=== PATIENT | female | born 1935 | race Caucasian/White ===

== ENCOUNTER 2017-08-22 13:21 | Inpatient (IN) ==
[2017-08-22] MEDS ORDERED: ASPIRIN PO STA (13:27)
[2017-08-22] MEDS ORDERED: LOPRESSOR IV ONE (13:37)
--- NOTE | 2017-08-22 14:10 | EKG Report ---
Test Performed on : 08/22/2017 1:34:07 PM Test Reason : CHEST PAIN Blood Pressure : / mmHG Vent. Rate : 148 BPM Atrial Rate : 131 BPM P-R Int : 000 ms QRS Dur : 082 ms QT Int : 310 ms P-R-T Axes : 000 009 115 degrees QTc Int : 486 ms Atrial fibrillation. with rapid ventricular response. ST \T\ T wave abnormality, consider lateral ischemia Abnormal ECG No previous ECGs available Unconfirmed Result
[2017-08-22 14:32] LABS: MANUAL DIFF NEEDED? NO
[2017-08-22 14:39] LABS: BASO% 0.2 % (0.0-0.8); EOS# 0.08 X1000 (0.0-0.7); EOS% 1.4 % (0.0-10.0); HEMATOCRIT 38.4 % (37.0-47.0); HEMOGLOBIN 12.8 g/dL (12.0-16.0); IMM GRAN# 0.02 X1000 (0.0-0.04); IMM GRAN% 0.3 % (0.0-0.5); LYMPH# 1.45 X1000 (1.2-3.4); LYMPH% 24.6 % (20.5-51.1); MCHC 33.3 g/dL (33-37); MCV 86.9 FL (81-99); MONO# 0.54 X1000 (0.11-0.59); MONO% 9.2 % (1.7-9.3); MPV 10.2 FL (7.4-10.4); NEUT% 64.3 % (42.2-75.2); PLT 229 X1000 (130-400); RBC 4.42 XMIL (4.2-5.4)
[2017-08-22] MEDS ORDERED: NS 500 ML IV ONE (14:48)
[2017-08-22] MEDS ORDERED: CARDIZEM 100 MG/NS 100 MG/100 ML IVPB IV SCH (14:53)
--- NOTE | 2017-08-22 14:58 | PROVIDER DOCUMENTATION ---
This chart was entered by Jaswant Mathews Scribe, acting as scribe for Steve Moreira MD. HPI-Chest Pain - General Chief Complaint: Chest Pain Stated Complaint: Chest pain Time Seen by Provider: 08/22/17 13:29 Source: patient Allergies/Adverse Reactions: Patient Allergies Allergy/AdvReac Type Severity Reaction Status Date / Time ampicillin Allergy Mild ITCHING Verified 08/22/17 13:26 erythromycin base Allergy Mild ITCHING Verified 08/22/17 13:26 [Erythromycin Base] tetanus immune globulin Allergy Mild ITCHING Verified 08/22/17 13:26 Penicillins Allergy Unknown Unknown Verified 08/22/17 13:26 Home Medications: Home Medication List Medication Instructions Recorded Confirmed Last Taken Type Aspirin 81 mg PO DAILY 01/09/14 01/09/14 01/09/14 08:00 History Losartan/Hctz [Hyzaar 100/12.5 mg 1 each PO DAILY 01/09/14 01/09/14 01/09/14 08: 00 History Tab] Metformin HCl [Fortamet] 500 mg PO DAILY 01/09/14 01/09/14 01/09/14 08:00 History Metoprolol [Lopressor] 50 mg PO DAILY 01/09/14 01/09/14 01/09/14 08:00 History Simvastatin 80 mg PO DAILY 01/09/14 01/09/14 01/09/14 08:00 History - History of Present Illness-CP Nature of Presenting Problem: patient is a 82 y/o F that presents with substernal chest pain began a hour ago. no relief with nitro en route. patient reports missing her dose of Metoprolol this am. no sob, n/v, or diaphoresis Location: reports: substernal Quality of Pain: reports: tightness Severity in ED: moderate Onset/Duration: abrupt, 1 hour ago Timing: still present, constant Context/Activities at Onset: reports: other (missed dose of metoprolol) Modifying Factors: improves with: nothing Associated Symptoms: denies: abdominal pain, back pain, dizziness, fever/chills , nausea, shortness of breath, vomiting Nitro Today/Relief: no nitro taken today Aspirin Treatment Today: 325 mg x 1, provided by ED Prior Chest Pain/Cardiac Workup: reports: cardiac cath (stents) Similar Symptoms Previously?: No Recently Seen Here or By Another Healthcare Provider: No Review of Systems - Adult - REVIEW OF SYSTEMS - ADULT Constitutional: denies: chills, fever Eyes: reports: no symptoms reported Ears, Nose, Mouth & Throat: reports: no symptoms reported Cardiovascular: reports: chest pain. denies: orthopnea, palpitations, syncope Respiratory: denies: cough, shortness of breath, wheezing Gastrointestinal: denies: abdominal pain, nausea, vomiting Genitourinary: reports: no symptoms reported Musculoskeletal: reports: no symptoms reported Integumentary: reports: no symptoms reported Neurological: reports: no symptoms reported Psychiatric: reports: no symptoms reported Endocrine: reports: no symptoms reported Hematologic/Lymphatic: reports: no symptoms reported Allergic/Immunologic: reports: no symptoms reported All Other Systems: Reviewed and Negative Past History - Adult - PAST MEDICAL HISTORY-ADULT Review of Records: reports: Old Records Reviewed, Nursing Assessment Review, Medications Reviewed Cardiovascular: reports: CAD, HTN, hyperlipidemia, other (MVP) - PRIOR SURGERIES/PROCEDURES Surgical/Procedure History: reports: cardiac stent, other (kidney) - IMMUNIZATION STATUS Childhood Immunizations: See Nurse Assessment Flu Vaccine: See Nurse Assessment - FAMILY HISTORY Family History: reviewed, not pertinent - SOCIAL HISTORY Smoking: non-smoker Living Situation: family Physical Exam-General - PHYSICAL EXAM-ADULT Initial Vital Signs Reviewed: Yes - CONSTITUTIONAL General Appearance: alert, mild distress - EYES Eyes: PERRL/EOMI, pink conjunctivae - HEAD, EARS, NOSE, MOUTH & THROAT HENMT: normocephalic/atraumatic, moist mucous membranes, normal ENT inspection - NECK Neck: non-tender, full range of motion, normal inspection - RESPIRATORY Respiratory: lungs clear, normal breath sounds, no respiratory distress, no accessory muscle use - CARDIOVASCULAR Cardiovascular: no JVD, irregularly irregular - GASTROINTESTINAL (ABDOMEN) Abdominal Exam: normal bowel sounds, non tender, soft - MUSCULOSKELETAL Back Exam: no CVA tenderness, no vertebral tenderness Extremity: normal range of motion, normal inspection, no pedal edema, normal capillary refill - SKIN Integumentary: normal color, warm/dry - NEUROLOGIC Neurologic: lock tender II-XII nml as tested, no motor/sensory deficits - PSYCHIATRIC Psych/Mental Status: normal mood/affect, normal thought content, normal thought process, oriented x 3 Progress - PLAN OF CARE/RESULTS Progress/Plan/Lab Results: Vital Signs - 8 hr 08/22/17 13:22 08/22/17 13:47 08/22/17 13:52 Temperature 97.9 F Pulse Rate 131 H 147 H 124 H Respiratory Rate 16 20 20 Blood Pressure 133/68 150/78 133/66 O2 Sat by Pulse Oximetry 95 100 100 08/22/17 14:11 08/22/17 14:43 08/22/17 14:52 Temperature Pulse Rate 116 H 121 H 133 H Respiratory Rate 20 13 16 Blood Pressure 114/85 96/76 103/60 O2 Sat by Pulse Oximetry 100 99 98 Laboratory Results - last 24 hr 08/22/17 13:50 WBC 5.90 RBC 4.42 Hgb 12.8 Hct 38.4 MCV 86.9 MCH 29.0 MCHC 33.3 RDW Std Deviation 13.3 Plt Count 229 MPV 10.2 Immature Gran % (Auto) 0.3 Neut % (Auto) 64.3 Lymph % (Auto) 24.6 [place] % (Auto) 9.2 Eos % (Auto) 1.4 Baso % (Auto) 0.2 Immature Gran # (Auto) 0.02 Neut # (Auto) 3.80 Lymph # (Auto) 1.45 [place] # (Auto) 0.54 Eos # (Auto) 0.08 Baso # (Auto) 0.01 Orders Category Date Time Status Cardiac Monitoring DIRECTED Care 08/22/17 13:27 Active Saline Loc NOW Care 08/22/17 13:27 Active CHEST-2 VIEWS [RAD] Stat Exams 08/22/17 13:27 Taken CBC WITH ELECTRONIC DIFF [HEME] Stat Lab 08/22/17 13:50 Completed CK PROFILE [SP CHEM] Stat Lab 08/22/17 13:50 Received COMPREHENSIVE METABOLIC PANEL [CHEM] Stat Lab 08/22/17 13:50 Received MAGNESIUM [CHEM] Stat Lab 08/22/17 13:50 Received PRO B-NATRIURETIC PEPTIDE Stat Lab 08/22/17 13:50 Received PR[address]IME WITH INR PL [COAG] Stat Lab 08/22/17 13:[address] [COAG] Stat Lab 08/22/17 13:50 Received TROPONIN T Stat Lab 08/22/17 13:50 Received 0.9% Sodium Chloride Inj [Ns] 500 ml Med 08/22/17 14:48 Active IV 999 mls/hr Aspirin Med 08/22/17 13:27 Discontinued 325 mg PO STAT STA Diltiazem 100 mg/Ns [Cardizem 100 mg/Ns] Med 08/22/17 14:53 Ordered 100 mg in 100 ml IV 2.5 mg/hr Metoprolol [Lopressor] Med 08/22/17 13:37 Discontinued 5 mg IV NOW ONE EKG [EKG] Stat Ther 08/22/17 13:27 Draft Transfer/Admit Order [TRANSFER] Routine Transfer 08/22/17 14:53 Ordered Result Diagrams: 08/22/17 13:50 - EKG 1 Time of EKG reading by physician:: 13:34 EKG Read and Signed by:: Steve Moreira EKG Interpretation (*Must complete 3 of following elements*): Abnormal Rate: 148 Rhythm: a-fib w/ rvr QRS: normal ST Wave: non-specific ST changes - XRAY 1 XRAY Study: Chest Impression: Normal XRAY Interpretation: nad - CONSULTS/PCP/HOSPITALIST Notification #1 *Consult/PCP/Hospitalist*: Dr.Peter Mrain Time Discussed: 14:52 Reason/Comments: give Dig #2 Consult: Time Discussed: 14:57 Consult Disposition: Will see in ED, Admit Departure - Departure Date of Disposition Decision: 08/22/17 Time of Disposition Decision: 14:57 DIAGNOSIS: New onset atrial fibrillation Chest pain Qualifiers: Chest pain type: other chest pain Qualified Code(s): R07.89 - Other chest pain ; R07.8 - Other chest pain Disposition: ADMITTED INPATIENT 09 Certified Medical Emergency: Emergent Condition: Stable - Critical Care Note This patient required my direct & personal management of CC.: Yes Total Time (mins): 45 Critical Care Statement: This patient required my direct personal management to treat or rule out processes, the absence of which, could potentiallly result in sudden, clinically significant life or limb threatening deterioration. Attestation - Physician/ ROBER Attestation The physician spent face to face time with patient:: Yes Advanced Practice Provider documentation review:: Supervising physician onsite and consulted in the evaluation and care of this patient. The physician did have a face to face encounter with the patient. This chart was documented by the indicated scribe, (Jaswant Mathews, [place]) and accurately reflects the services I performed and decisions made by me, Steve Moreira MD, as attested by the provider's signature.
[2017-08-22] MEDS ORDERED: LANOXIN IV ONE (15:02)
[2017-08-22 15:09] LABS: INR 0.86 (0.86-1.15); PROTIME 12.4 Seconds (12.1-15.5)
--- NOTE | 2017-08-22 15:09 | Diag Imaging Result Doc PS360 ---
EXAM: CHEST-2 VIEWS HISTORY: CP TECHNIQUE: PA and Lateral chest x-ray COMPARISON: 01/10/2014 FINDINGS: The cardiomediastinal silhouette is within normal limits. The pulmonary vasculature is not congested. No infiltrate, effusion, or pneumothorax is appreciated. IMPRESSION: No acute cardiopulmonary abnormality is identified. Electronically signed by Jocelin Brush 08/22/2017 3:07 PM
[2017-08-22 15:10] LABS: PTT PL 24.9 Seconds (22.6-43.9)
[2017-08-22 15:57] LABS: CHLORIDE 100 mmol/L (98-107); POTASSIUM 4.4 mmol/L (3.5-5.1); SODIUM 137 mmol/L (136-145)
[2017-08-22 15:58] LABS: AGAP 19; BUN 16 mg/dL (8-22); CALCIUM 8.8 mg/dL (8.8-10.2); COSMO 286; TCO2 18 mmol/L (25-35); TOTAL PROTEIN 6.5 g/dL (6.3-8.3)
[2017-08-22 15:59] LABS: ALBUMIN 3.8 g/dL (3.5-5.0); ALKALINE PHOSPHATASE 87 U/L (32-104); CK PROFILE 149 U/L (24-173); GOT 25 U/L (10-30); GPT 29 U/L (10-36)
[2017-08-22] MEDS ORDERED: NS 1,000 ML IV ONE ×2 (16:00→21:22)
[2017-08-22 17:04] LABS: MAGNESIUM 1.9 mg/dL (1.5-2.7)
--- NOTE | 2017-08-22 17:56 | HISTORY AND PHYSICAL ---
PRIMARY CARE PHYSICIAN: Dr. Tovar. CHIEF COMPLAINT: Of substernal chest pain that was dull and constant for approximately 1 hour prior to arriving. HISTORY OF PRESENTING ILLNESS: This is an 82-year-old female who presented to [facility] ER with complaints of substernal chest pain that she described as dull and constant that began approximately 1 hour prior to arriving. When she arrived to the emergency room she was noted to have a heart rate of 131 that went up to 147 approximately 20 minutes after arriving. EKG on arrival showed atrial fibrillation with RVR at 148. She was given Lopressor 5 mg IV x1, digoxin 500 mcg IV x1 and aspirin 325 stat. Heart rate only came down to like between 116 and 124 so she was being placed on a Cardizem drip and admitted to the intensive care unit for further evaluation and treatment. PAST MEDICAL HISTORY: Hypertension, hyperlipidemia, diabetes type 2, mitral valve prolapse and coronary artery disease. PAST SURGICAL HISTORY: Right toe surgery and a kidney stone. FAMILY HISTORY: CVA, dementia and cancer. SOCIAL HISTORY: She currently lives with her . Denies any tobacco, alcohol, or illicit drug use. ALLERGIES: To ampicillin, erythromycin, tetanus, immunoglobulin and penicillin. HOME MEDICATIONS: Will obtain a current list and restart as appropriate. LABORATORY DATA: Showed a white blood cell count of 5.90, hemoglobin 12.8, hematocrit 38.4, platelets 229,000. PT and INR of 12.4 and 0.86. Sodium of 137, potassium 4.4, chloride 100, CO2 18, BUN of 16, creatinine 0.9, glucose 292, magnesium is pending. Cardiac enzyme was negative. ProBNP of 138. Chest x-ray showed cardiomediastinal silhouette within normal limits. No infiltrate, effusion or pneumothorax appreciated. No cardiopulmonary abnormality identified. EKG showed atrial fibrillation with RVR at 148. REVIEW OF SYSTEMS: She denied any fever, chills, blurred vision, dizziness, chest pain, coughing, shortness of breath, any fever, chills, blurred vision, dizziness. She was positive for chest pain nonradiating that was dull and constant. Denied any cough or shortness of breath. Denied any abdominal pain, constipation, diarrhea, burning or hurting with urination. PHYSICAL EXAMINATION: VITAL SIGNS: On arrival showed a temperature of 97.9 degrees, pulse 148. Her EKG with atrial fibrillation with RVR. Respirations 16, blood pressure 133/68 saturating 95% on room air. GENERAL: This is an 82-year-old female who is lying in the bed and answers questions appropriately. HEENT: Normocephalic and atraumatic. Pupils are equal, round, reactive to light. Extraocular movements are intact. Oropharynx and nares are clear. NECK: Supple. LUNGS: Clear to auscultation bilaterally with equal lung expansion and chest wall movement. HEART: With regular rate and rhythm. No murmurs, rubs, or gallops. ABDOMEN: Soft, nontender, nondistended. Bowel sounds are present x4 quadrants. EXTREMITIES: There is no clubbing, cyanosis, or edema. NEUROLOGICAL: The cranial nerves 2-12 are grossly intact. ASSESSMENT: 1. A new onset atrial fibrillation. 2. History of coronary artery disease. 3. Hypertension. 4. Diabetes type 2. PLAN: She was admitted to the intensive care unit, placed on a Cardizem drip. Normal saline at 100 mL an hour. Will obtain an echocardiogram tomorrow once her rate is more controlled. We will consult Cardiology and will recheck a CBC and BMP in the a.m. Dictated by LYNN Ortiz for Vasyl Blum MD cc: MD Vasyl Alves MD
--- NOTE | 2017-08-22 20:01 | EKG Report ---
Test Performed on : 08/22/2017 7:27:22 PM Test Reason : rythum change Blood Pressure : / mmHG Vent. Rate : 078 BPM Atrial Rate : 078 BPM P-R Int : 176 ms QRS Dur : 082 ms QT Int : 404 ms P-R-T Axes : -07 004 069 degrees QTc Int : 460 ms Normal sinus rhythm. Normal ECG When compared with ECG of 22-AUG-2017 13:34, (Unconfirmed) Sinus rhythm. has replaced Atrial fibrillation. Vent. rate has decreased BY [address] no longer depressed in Anterolateral leads Nonspecific T wave abnormality now evident in Anterior leads T wave inversion no longer evident in Lateral leads Confirmed by Steve Moreira MD ([id number]) on 08/24/2017 1:01:19 PM
[2017-08-22] MEDS: LOVENOX SUBQ SCH (20:25)
[2017-08-22] MEDS: CARDIZEM PO SCH (20:25)
[2017-08-22] MEDS ORDERED: TYLENOL PO PRN (21:22)
[2017-08-22] MEDS ORDERED: ZOFRAN IV PRN (21:22)
--- NOTE | 2017-08-22 21:46 | HISTORY AND PHYSICAL ---
ADDENDUM: Patient seen [id number] encounter. This is an 82-year-old female with history of CAD status post PCI, mitral valve prolapse, presenting with chest pain. She is supposed to be taking metoprolol but she only takes it intermittently. She missed her dose this morning but sometimes she goes as much as a week without taking her medication. She does report this paroxysmal tachycardia with dizziness and palpitations with concern over paroxysmal atrial fibrillation but she has never been told she is on atrial fibrillation or she has never carried that diagnosis. Cardiovascular she is regular rate and rhythm. She spontaneously converted on a Cardizem drip. Plan is to switch her to oral Cardizem versus metoprolol, do serial cardiac enzymes. Her CHADS2-VASc score she is female, 82, hypertension, diabetes and CAD so at least almost 5 so she does meet criteria for long-term anticoagulation. We will initiate Lovenox and switch her to Eliquis as an outpatient pending her clinical status. Greater than 30 critical care time for atrial fibrillation with IV Cardizem. cc: Vasyl Blum MD
[2017-08-23] MEDS: CARDIZEM PO SCH ×2 (02:11→07:56)
[2017-08-23 05:54] LABS: MANUAL DIFF NEEDED? NO
[2017-08-23 05:57] LABS: BASO% 0.2 % (0.0-0.8); EOS# 0.07 X1000 (0.0-0.7); EOS% 1.5 % (0.0-10.0); HEMATOCRIT 36.5 % (37.0-47.0); IMM GRAN# 0.01 X1000 (0.0-0.04); IMM GRAN% 0.2 % (0.0-0.5); LYMPH# 1.88 X1000 (1.2-3.4); LYMPH% 39.3 % (20.5-51.1); MCH 28.8 PG (27-31); MCHC 32.9 g/dL (33-37); MCV 87.7 FL (81-99); MONO# 0.37 X1000 (0.11-0.59); MONO% 7.7 % (1.7-9.3); MPV 10.1 FL (7.4-10.4); NEUT% 51.1 % (42.2-75.2); PLT 234 X1000 (130-400); RBC 4.16 XMIL (4.2-5.4)
[2017-08-23] MEDS: HUMULIN R DOSE (PARKWAY) SUBQ SCH ×2 (06:06→11:09)
[2017-08-23 06:39] LABS: AGAP 10; BUN 14 mg/dL (8-22); CALCIUM 8.6 mg/dL (8.8-10.2); CHLORIDE 102 mmol/L (98-107); COSMO 275; MAGNESIUM 1.8 mg/dL (1.5-2.7); POTASSIUM 3.8 mmol/L (3.5-5.1); SODIUM 136 mmol/L (136-145); TCO2 25 mmol/L (25-35)
[2017-08-23] MEDS: LOVENOX SUBQ SCH (07:56)
[2017-08-23] MEDS ORDERED: GLUCOPHAGE XR PO SCH (09:00)
[2017-08-23] MEDS ORDERED: ZOCOR PO SCH (09:00)
[2017-08-23] MEDS ORDERED: ASPIRIN PO SCH (09:00)
[2017-08-23 09:29] VITALS: BP 155/55
--- NOTE | 2017-08-23 15:12 | DISCHARGE SUMMARY ---
ADMISSION DATE: 08/22/2017 DISCHARGE DATE: 08/23/2017 PRIMARY CARE PHYSICIAN: Dr. Tovar. ADMISSION DIAGNOSES: 1. New onset atrial fibrillation. 2. History of coronary artery disease. 3. Hypertension. 4. Diabetes type 2. DISCHARGE DIAGNOSES: 1. New onset of atrial fibrillation converted to normal sinus rhythm after intervention with medication. 2. History of coronary artery disease. 3. Hypertension. 4. Diabetes type 2. SUMMARY OF FINDINGS: This is an 82-year-old female who presented to the emergency room with complaints of a dull constant chest pain that began 1 hour prior to arriving. States that she had not been taking her metoprolol as prescribed for about a week, week and a half and missed several doses. When she arrived to the emergency room she had a heart rate of 131 that went up to 147 approximately 20 minutes after arrival. Her EKG showed atrial fibrillation with RVR at 148. She was admitted to the intensive care unit initially and placed on a Cardizem drip. She converted back to normal sinus rhythm and was placed on Cardizem 60 mg p.o. q.6 hours. We did an echocardiogram but those results have not resulted. Patient has kept a heart rate in the 70s. No complaints of further chest pain, shortness of breath. Discussed the importance of her medication regimen with the patient and she verbalized understanding and so it is felt that she can safely be discharged home. DISCHARGE MEDICATIONS: She will have a prescription for Cardizem CD 240 mg p.o. daily #30 with no refills and Eliquis 5 mg p.o. b.i.d. #60 with no refills. She will continue her aspirin 81 mg p.o. daily, metformin 500 mg p.o. daily and simvastatin 80 mg p.o. daily. FOLLOWUP: She will follow up with her primary care physician in 1-2 weeks. Her primary care will fill out the prior authorization for her Eliquis but she was given a 30 day free trial of the Eliquis and then she will follow up with cardiology Dr. Marin in 1 month and call their office for an appointment also. TIME SPENT: 35 minute discharge. Dictated by LYNN Ortiz for Vasyl Blum MD cc: MD Dr. Tomas Alves CRNP Alexis R. Penot, MD
[2017-08-23 15:31] LABS: HEMOGLOBIN A1C 7.2 % (4.8-6.0)
--- NOTE | 2017-08-23 18:02 | ECHO REPORT ---
ORDER DATE: 08/22/2017 INTERPRETING PHYSICIAN: Dr. Joshi REQUESTING PHYSICIAN: Homa CLINICAL INDICATIONS: This is an 82-year-old female with atrial fibrillation with rapid response, coronary heart disease. M-MODE MEASUREMENTS: Right ventricle: 2.7 cm. Left ventricle end diastole: 4.6 cm. Left ventricle end systole: 2.7 cm. Posterior wall: 1.1 cm. Interventricular septum: 1.3 cm. Left atrium: 3.9 cm. Aortic root: 2.8 cm. SUMMARY OF 2-DIMENSIONAL IMAGIN. The patient went into atrial fibrillation for a few moments during the performance of the echocardiogram. 2. The left ventricular systolic function is hyperdynamic. Ejection fraction is probably in the order of 80%. 3. The septum appears to be more hypertrophic than the base of the posterior wall. 4. There is systolic anterior motion of the mitral valve raising concern for hypertrophic cardiomyopathy. 5. The mitral annulus shows dense calcification. The color flow mapping of mitral valve indicates moderate degree of regurgitation. The pulse wave Doppler of inflow shows relatively normal E/A ratio. 6. The tissue Doppler of septal and lateral mitral annulus averages 7 cm. 7. The left atrium is mildly enlarged. 8. The right ventricle is normal in size and function. 9. The tricuspid valve shows mild to moderate degree of regurgitation. 10.The pulmonary systolic pressure is somewhere in the neighborhood of 38 mmHg. 11.The patient converted to sinus rhythm during the performance of the study from atrial fibrillation. 12.The diastolic function is basically normal. 13.The aortic valve shows some thickening of the cusps with calcification without true stenosis. 14.Maximum gradient across the outflow tract of the left ventricle shows a peak gradient of 36 mmHg, mean gradient is 20. After conversion to sinus rhythm, the gradient dropped to 23 and 13, respectively. 15.There is no pericardial effusion, mass or thrombus. CONCLUSIONS: This study showed: 1. Hyperdynamic left ventricle with ejection fraction very close to 80% with some asymmetric hypertrophy of the septum. There is systolic anterior motion of the mitral valve. 2. During the study, the patient became tachycardic, went into atrial fibrillation and then subsequently converted to sinus rhythm. 3. Gradient across the aortic valve changed from 20 mmHg mean gradient when the patient was in atrial fibrillation to 13 mm gradient when she was in sinus rhythm. 4. There is a moderate degree of mitral regurgitation with very dense calcification of the mitral annulus. There is mild to moderate degree of tricuspid regurgitation with pulmonary pressure of 38 mmHg. Clinical correlation is recommended. cc: MD Kalani Bhakta CRNP MTDD
== END 2017-08-23 13:30 | disposition home or self-care (01) ==
LOC: P.ED 13:21 → P.ICU 13:22 → P.MEDSURG 08-23 09:06
PROVIDERS: ATTEND Internal Medicine

== ENCOUNTER 2019-07-16 06:19 | Inpatient (IN) ==
--- NOTE | 2019-07-16 07:41 | PROVIDER DOCUMENTATION ---
HPI-General Adult - General Chief Complaint: Flank Pain Stated Complaint: SIDE PAIN Time Seen by Provider: 07/16/19 07:26 Source: patient, family Allergies/Adverse Reactions: Patient Allergies Allergy/AdvReac Type Severity Reaction Status Date / Time ampicillin Allergy Mild ITCHING Verified 03/24/18 03:38 erythromycin base Allergy Mild ITCHING Verified 03/24/18 03:38 [Erythromycin Base] tetanus immune globulin Allergy Mild ITCHING Verified 03/24/18 03:38 Penicillins Allergy Unknown Unknown Verified 03/24/18 03:38 Home Medications: Home Medication List Medication Instructions Recorded Confirmed Last Taken Type Aspirin 81 mg PO DAILY 01/09/14 07/16/19 01/09/14 08:00 History Metformin HCl [Fortamet] 500 mg PO DAILY 01/09/14 07/16/19 04/29/18 History Diltiazem C.d. [Cardizem Cd] 240 mg PO DAILY #30 capsule 08/23/17 07/16/19 Unknown Rx ATORVAstatin [Lipitor] 40 mg PO DAILY 07/16/19 07/16/19 Unknown History Apixaban [Eliquis] 5 mg PO BID 07/16/19 07/16/19 Unknown History Levothyroxine Sodium 75 mcg PO DAILY 07/16/19 07/16/19 Unknown History Memantine HCl 10 mg PO BID 07/16/19 07/16/19 Unknown History Nitrofurantoin Monohyd/M-Cryst 100 mg PO DAILY 07/16/19 07/16/19 Unknown History [Nitrofurantoin [place]-Mcr 100 mg] Ranitidine [Zantac] 150 mg PO BID 07/16/19 07/16/19 Unknown History Sulfamethoxazole/Trimethoprim 800 mg PO BID 07/16/19 07/16/19 Unknown History [Sulfamethoxazole-Tmp Ds Tablet] - History of Present Illness -Gen Adult Nature of Presenting Problems: has been being tx by PCP for UTI, hematuria, unsure what abx is currently on. Yest, began with sharp LUQ pain, intermittent. Not sure how long it lasts, is worse when takes deep breath. No fever. HAs had N/V. Pain Radiation: reports: no radiation Similar Symptoms Previously?: No Recently seen or treated by another doctor?: Yes Review of Systems - Adult - REVIEW OF SYSTEMS - ADULT Constitutional: reports: no symptoms reported Eyes: reports: no symptoms reported Ears, Nose, Mouth & Throat: reports: no symptoms reported Cardiovascular: reports: no symptoms reported Respiratory: reports: chronic cough ( days for years) Gastrointestinal: reports: see HPI Genitourinary: reports: see HPI Musculoskeletal: reports: no symptoms reported Integumentary: reports: no symptoms reported Neurological: reports: no symptoms reported Psychiatric: reports: no symptoms reported Endocrine: reports: no symptoms reported Hematologic/Lymphatic: reports: no symptoms reported Allergic/Immunologic: reports: no symptoms reported Past History - Adult - PAST MEDICAL HISTORY-ADULT Review of Records: reports: Medications Reviewed Major Childhood Illnesses: reports: denies history Cardiovascular: reports: CAD, HTN, hyperlipidemia, other (MVP) Respiratory: reports: denies history Gastrointestinal: reports: denies history Obstetrical/Gynecological: reports: denies history Genitourinary: reports: denies history Musculoskeletal: reports: other (last year hip surgery) Neurological: reports: denies history Psychiatric: reports: denies history Endocrine/Immune: reports: denies history Other Conditions: reports: denies history - PRIOR SURGERIES/PROCEDURES Surgical/Procedure History: reports: cardiac stent, orthopedic (extremity), other (kidney) - IMMUNIZATION STATUS Childhood Immunizations: See Nurse Assessment Flu Vaccine: See Nurse Assessment - FAMILY HISTORY Family History: reviewed, not pertinent Physical Exam-General - PHYSICAL EXAM-ADULT Initial Vital Signs Reviewed: Yes - CONSTITUTIONAL General Appearance: appears well, alert, no apparent distress - EYES Eyes: PERRL/EOMI, pink conjunctivae - HEAD, EARS, NOSE, MOUTH & THROAT HENMT: normocephalic/atraumatic, moist mucous membranes, normal ENT inspection, pharynx normal - NECK Neck: full range of motion, supple, normal inspection - RESPIRATORY Respiratory: lungs clear, normal breath sounds, no pleuratic chest pain, no respiratory distress, no accessory muscle use - CARDIOVASCULAR Cardiovascular: regular rate, rhythm, no edema, no murmur - GASTROINTESTINAL (ABDOMEN) Abdominal Exam: non tender, soft - MUSCULOSKELETAL Back Exam: normal inspection, no CVA tenderness, no vertebral tenderness Extremity: normal range of motion, non-tender, normal inspection, no pedal edema - SKIN Integumentary: normal color, normal turgor, warm/dry - NEUROLOGIC Neurologic: supplier quality engineer II-XII nml as tested, grossly normal, no motor/sensory deficits - PSYCHIATRIC Psych/Mental Status: normal mood/affect, normal thought content, normal thought process, oriented x 3 Progress - PLAN OF CARE/RESULTS Progress/Plan/Lab Results: Vital Signs - 8 hr 07/16/19 06:25 Temperature 97.9 F Pulse Rate 94 H Respiratory Rate 18 Blood Pressure 142/75 O2 Sat by Pulse Oximetry 97 Was just started on bactrim yest Result Diagrams: 07/16/19 06:55 07/16/19 06:55 - XRAY 1 XRAY Study: Chest Impression: Normal - CT/MRI 1 CT Study: Renal Stone Impression: Abnormal (EXAM: CT RENAL STONE SEARCH 07/16/2019 HISTORY: hematuria, L flank pain TECHNIQUE: This exam was performed using automated exposure control, adjustment of mA or kV according to patient size, and/or use of iterative reconstruction technique. COMMENT: There are calcifications in the mitral valve annulus. There is a calcified granuloma in the right lower lobe and multiple calcified granulomata in the spleen. There is marked hydronephrosis on the left with perinephric stranding. There is no evidence of nephrolithiasis on the left. There is a 6 mm stone in the lower pole of the right collecting system. There is no evidence of obstructive changes on the right. The left ureter is slightly distended. There is considerable beam hardening artifact from a left hip prosthesis. The possibility of a stone in the distal portion of the left ureter cannot be excluded. There is clearly some degree of UPJ stenosis. There are no previous studies. The liver is grossly normal in appearance given the lack of contrast. There is atherosclerotic calcification throughout the aorta without evidence of significant dilatation. There are degenerative changes in the symphysis pubis and sacroiliac joints and lumbar spine. 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 Right nephrolithiasis. Distal left ureter is somewhat obscured by metallic artifact. Electronically signed by Gio Sarabia 07/16/2019 9:50 AM 07/16/19 0968 Interpreting Physician: Gio Sarabia MD Dictated Date/Time: 07/16/1956 cc: Enrrique Dukes MD; Richard Tovar MD) - CONSULTS/PCP/HOSPITALIST Notification #1 *Consult/PCP/Hospitalist*: Hospitalist Time Discussed: 11:15 Consult Disposition: Will see in ED, Admit #2 Consult: Ananyev Time Discussed: 11:20 Consult Disposition: other (will see as consult) Departure - Departure Date of Disposition Decision: 07/16/19 Time of Disposition Decision: 11:15 DIAGNOSIS: Pyelonephritis Disposition: ADMITTED INPATIENT 09 Certified Medical Emergency: Emergent Condition: Good - Critical Care Note This patient required my direct & personal management of CC.: No Attestation - Physician/ ROBER Attestation Patient care was provided by Advanced Practice Provider:: No The physician spent face to face time with patient:: Yes Advanced Practice Provider documentation review:: Supervising physician onsite and consulted in the evaluation and care of this patient. The physician did have a face to face encounter with the patient.
[2019-07-16 08:06] LABS: BASO# 0.02 X1000 (0.0-0.2); BASO% 0.1 % (0.0-0.8); EOS# 0.01 X1000 (0.0-0.7); EOS% 0.1 % (0.0-10.0); HEMOGLOBIN 12.6 g/dL (12.0-16.0); IMM GRAN# 0.05 X1000 (0.0-0.04); IMM GRAN% 0.3 % (0.0-0.5); LYMPH# 1.08 X1000 (1.2-3.4); LYMPH% 7.4 % (20.5-51.1); MCH 29.2 PG (27-31); MCHC 33.2 g/dL (33-37); MONO# 1.34 X1000 (0.11-0.59); MONO% 9.1 % (1.7-9.3); MPV 9.9 FL (7.4-10.4); NEUT# 12.17 X1000 (1.4-6.5); PLT 467 X1000 (130-400); RBC 4.32 XMIL (4.2-5.4); RDW 12.7 % (11.5-14.5); WBC 14.67 X1000 (4.8-10.8)
--- NOTE | 2019-07-16 08:11 | Diag Imaging Result Doc PS360 ---
CHEST-2 VIEWS - 07/16/2019 INDICATION: cough, L side pain COMPARISON: 03/02/2019 FINDINGS: The lungs are normally expanded and clear. Heart size and mediastinal contours are normal. No pneumothorax or pleural effusion. IMPRESSION: Negative exam. Electronically signed by Nilton Garcia 07/16/2019 8:08 AM
[2019-07-16 08:21] LABS: ALB/GLOB RATIO 1.2; ALBUMIN 4.2 g/dL (3.5-5.0); CALCIUM 9.6 mg/dL (8.8-10.2); POTASSIUM 4.5 mmol/L (3.5-5.1); TOTAL BILIRUBIN 1.11 mg/dL (0.20-1.00); TOTAL PROTEIN 7.7 g/dL (6.3-8.3)
[2019-07-16 08:43] LABS: BANDS 3 % (0-1); LYMPHS 3 % (21-51); MONO 6 % (1-9); SEGS 88 % (42-75)
[2019-07-16 09:01] LABS: URINE SOURCE CATH
[2019-07-16 09:04] LABS: BILIRUBIN URINE NEGATIVE (NEGATIVE); BLOOD URINE LARGE (NEGATIVE); COLOR ORANGE; GLUCOSE URINE TRACE mg/dL (NEGATIVE); KETONE URINE NEGATIVE (NEGATIVE); LEUKOCYTES URINE LARGE (NEGATIVE); NITRITE URINE NEGATIVE (NEGATIVE); PROTEIN URINE 100 mg/dL (NEGATIVE); SP GRAVITY URINE 1.036; TURBIDITY URINE HAZY (CLEAR); UROBILINOGEN URINE NORMAL (NORMAL)
[2019-07-16 09:05] LABS: UR EPITHELIAL CELLS <10 /HPF (<10); URINE BACTERIA NEGATIVE /HPF; URINE WBC TNTC /HPF (<10)
--- NOTE | 2019-07-16 09:52 | Diag Imaging Result Doc PS360 ---
EXAM: CT RENAL STONE SEARCH 07/16/2019 HISTORY: hematuria, L flank pain TECHNIQUE: This exam was performed using automated exposure control, adjustment of mA or kV according to patient size, and/or use of iterative reconstruction technique. COMMENT: There are calcifications in the mitral valve annulus. There is a calcified granuloma in the right lower lobe and multiple calcified granulomata in the spleen. There is marked hydronephrosis on the left with perinephric stranding. There is no evidence of nephrolithiasis on the left. There is a 6 mm stone in the lower pole of the right collecting system. There is no evidence of obstructive changes on the right. The left ureter is slightly distended. There is considerable beam hardening artifact from a left hip prosthesis. The possibility of a stone in the distal portion of the left ureter cannot be excluded. There is clearly some degree of UPJ stenosis. There are no previous studies. The liver is grossly normal in appearance given the lack of contrast. There is atherosclerotic calcification throughout the aorta without evidence of significant dilatation. There are degenerative changes in the symphysis pubis and sacroiliac joints and lumbar spine. 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 Right nephrolithiasis. Distal left ureter is somewhat obscured by metallic artifact. Electronically signed by Gio Saarbia 07/16/2019 9:50 AM
[2019-07-16] MEDS ORDERED: ROCEPHIN 1 GM in NS 50 ML IV ONE (11:28)
[2019-07-16] MEDS: LEVAQUIN 750 MG/D5W 750 MG/150 ML IVPB IV SCH (11:35)
[2019-07-16] MEDS ORDERED: ZOFRAN IV PRN (11:53)
[2019-07-16] MEDS ORDERED: TYLENOL PO PRN (11:53)
--- NOTE | 2019-07-16 12:24 | HISTORY AND PHYSICAL ---
PRIMARY CARE PROVIDER: Richard Tovar MD. CHIEF COMPLAINT: Left flank pain. HISTORY OF PRESENT ILLNESS: Ms. Whatley is an 84-year-old female who is very hard of hearing, who presented with complaints of left flank pain. She stated that she had been told that she had a bladder and kidney infection as well as blood in her urine by her PCP. This has been over a week ago. She stated earlier this week she started having some nausea with some episodes of vomiting and then last night she started having left flank pain and decided to come to the ED for continued left flank pain. Workup in the ED: Renal CT showed severe ureteropelvic junction stenosis at the left, right nephrolithiasis and distal left ureter is somewhat obscured by metallic artifact. Chest x-ray was a negative exam. She had a white count of 14. We will initiate her on IV antibiotics and ED physician will call Urology to have them look at the CT scan given her history of kidney stones. There does show a 6 mm stone in the lower pole of the right collecting system, but no obstructions on the right and the possibility of the stone in the distal portion of the left ureter could not be excluded. PAST MEDICAL HISTORY: Hypertension, hyperlipidemia, diabetes mellitus type 2, mitral valve prolapse, coronary artery disease, atrial fibrillation, kidney stones. PAST SURGICAL HISTORY: Right toe surgery. We have a previous kidney stone removal, but the patient states that her kidney stones, they were never able to remove them. FAMILY HISTORY: Cerebrovascular accident, dementia, cancer. SOCIAL HISTORY: She lives with her who is also hard of hearing. The patient is hard of hearing. Denies any tobacco, alcohol or illicit drug use. ALLERGIES: Ampicillin, erythromycin, tetanus, and penicillin. HOME MEDICATIONS: Home medications have not been verified. REVIEW OF SYSTEMS: The patient denied any fever, chills, headache, dizziness, shortness of breath, chest pain. She states she does have palpitations with her irregular atrial fibrillation but nothing out of her norm. Currently no burning with urination or frequency. Just complained of left flank pain and some nausea and vomiting earlier in the week. PHYSICAL EXAMINATION: VITAL SIGNS: Temperature is 97.9 degrees, heart rate 94, respirations 18, blood pressure 142/75, O2 is 97% on room air. GENERAL: Ms. Whatley is a pleasant, hard of hearing 84-year-old female who is sitting up in the stretcher in no acute distress. HEENT: Atraumatic, normocephalic. PERRL. NECK: Supple, trachea midline. CARDIOVASCULAR: S1, S2 appreciated. No murmurs, gallops, rubs noted. RESPIRATORY: Lung sounds clear bilaterally. GASTROINTESTINAL: Soft, nontender, nondistended. Positive bowel sounds x4 quadrants. There was no CVA tenderness. EXTREMITIES: Bilateral pedal pulses are palpable. No lower extremity edema. The patient moves all extremities well. NEURO: No focal deficits noted. DIAGNOSTIC DATA: Renal CT severe uteropelvic junction stenosis on the left, right nephrolithiasis. Distal left ureter is somewhat obscured by metallic artifact. Possibility of a stone in the distal portion of the left ureter could not be excluded. There is a 6 mm stone in the lower pole of the right collecting system. LABORATORY DATA: White count 14, hemoglobin 12, hematocrit 38, platelet count 467,000. Sodium 131, potassium 4.1, BUN 17, creatinine 1, blood glucose is 286. Urinalysis with 10 to 20 RBCs, too numerous to count WBCs, leukocytes were large, large blood, negative for nitrates, negative for bacteria. ASSESSMENT AND PLAN: 1. Recent diagnosis of pyelonephritis and urinary tract infection. The patient does have an allergy to penicillin. We will initiate her on IV Levaquin and provide her with any pain medication for her left flank pain. There was some question of renal stones on a CT, one measuring 6 mm on the right and could not exclude on the left. The ED physician is going to speak with Urology to have them look at the CT imaging. We will continue with IV antibiotics, IV hydration. 2. Mild acute kidney injury. We will continue with IV hydration. Recheck her creatinine in the a.m. 3. Nausea and vomiting. Will provide antiemetics. 4. Atrial fibrillation. We will continue home medications when verified. 5. Diabetes mellitus type 2. Will place on pattern blood sugars and sliding scale. 6. Further recommendation to follow physician evaluation, laboratory and diagnostic data. Dictated by LYNN Abraham for Logan Stewart MD cc: MD Richard Del Castillo MD
--- NOTE | 2019-07-16 12:43 | EKG Report ---
Test Performed on : 07/16/2019 12:17:24 PM Test Reason : afib hx Blood Pressure : / mmHG Vent. Rate : 084 BPM Atrial Rate : 084 BPM P-R Int : 208 ms QRS Dur : 084 ms QT Int : 410 ms P-R-T Axes : 060 004 080 degrees QTc Int : 484 ms Normal sinus rhythm. Septal infarct , age undetermined Abnormal ECG When compared with ECG of 30-APR-2018 11:51, Septal infarct is now present Confirmed by Alvaro Edwards MD ([id number]) on 07/19/2019 8:32:43 AM
[2019-07-16] MEDS: NS 1,000 ML IV SCH (14:45)
--- NOTE | 2019-07-16 15:57 | HISTORY AND PHYSICAL ---
ADDENDUM: I have seen and examined Ms. Whatley today. The was at the bedside. Ms. Whatley comes in because of a left flank pain, which has been going on for some time. She also been complaining of some urinary discomfort. She has recently been treated for urinary tract infection. She complained of some nauseation and generalized weakness with chills yesterday. Upon presenting to the emergency department, she was evaluated and was found to have mild leukocytosis with predominant neutrophilia, mild renal impairment and a renal CT scan has shown a severe rotator pelvic junction stenosis on the left with also right nephrolithiasis. Distal left ureter is somewhat obscured by metallic artifact. ASSESSMENT: 1. Complicated left pyelonephritis with hydroureter. 2. Bilateral nephrolithiasis. 3. Mild acute kidney injury. 4. History of atrial fibrillation currently rate controlled. 5. Diabetes mellitus. PLAN: 1. We are going to continue with the gentle hydration. Continue with the IV antimicrobial therapy. We will still restart her home medication except for the anticoagulants due to anticipation of surgery. A consult has been placed for urology to evaluate Ms Whatley. 2. I have discussed the plan with the patient and the who was at the bedside at the time of the encounter. Please refer to the details of the history and physical that has been dictated by the nurse practitioner in the chart. cc: Logan Stewart MD
[2019-07-16] MEDS: HUMALOG SUBQ SCH ×2 (17:16→21:11)
[2019-07-16] MEDS ORDERED: NAMENDA PO SCH (21:00)
[2019-07-16] MEDS: ZANTAC PO SCH (21:11)
[2019-07-17] MEDS: HUMALOG SUBQ SCH ×4 (06:16→21:03)
[2019-07-17 06:52] LABS: BASO# 0.01 X1000 (0.0-0.2); BASO% 0.1 % (0.0-0.8); HEMATOCRIT 35.3 % (37.0-47.0); HEMOGLOBIN 11.6 g/dL (12.0-16.0); LYMPH# 1.14 X1000 (1.2-3.4); LYMPH% 10.8 % (20.5-51.1); MCH 29.1 PG (27-31); MCHC 32.9 g/dL (33-37); MCV 88.5 FL (81-99); MONO# 1.01 X1000 (0.11-0.59); MONO% 9.6 % (1.7-9.3); MPV 9.7 FL (7.4-10.4); PLT 407 X1000 (130-400); RBC 3.99 XMIL (4.2-5.4); RDW 12.8 % (11.5-14.5); WBC 10.53 X1000 (4.8-10.8)
[2019-07-17 07:25] LABS: LYMPHS 14 % (21-51); MONO 12 % (1-9); SEGS 74 % (42-75)
[2019-07-17 07:28] LABS: ALB/GLOB RATIO 0.9; ALBUMIN 3.2 g/dL (3.5-5.0); CREATININE 1.2 mg/dL (0.5-0.9); MAGNESIUM 1.6 mg/dL (1.5-2.7); POTASSIUM 3.8 mmol/L (3.5-5.1); TOTAL BILIRUBIN 0.79 mg/dL (0.20-1.00); TOTAL PROTEIN 6.7 g/dL (6.3-8.3)
--- NOTE | 2019-07-17 08:06 | PROGRESS NOTE ---
DATE: 07/17/2019 SUBJECTIVE: This morning Ms. Whatley refers to be doing okay. She feels stronger. She still has some left side flank and abdominal pain. OBJECTIVE: Vital signs: Blood pressure is 137/56, pulse of 81, respiration is 16, temperature is 97.9 degrees. The patient is saturating 97% on room air. General: On general exam, Ms. Whatley is an 84-year-old, elderly female. She is in bed, no distress. HEENT: Mucosa is pink and moist. Anicteric. Acyanotic. Neck: Supple. Chest: Good air entry bilateral. There were no crepitations, no rhonchi. Cardiovascular: Regular rate and rhythm. Abdomen: Soft, minimally tender in the left flank. There is positive left CVA tenderness. Bowel sounds are present. Extremities: No pedal edema. CONTAINER MAKER: Patient is awake, alert. She does have some baseline dementia and hard of hearing. LABORATORY DATA: WBC is down to 10.53, hemoglobin is 11.6, platelet count of 49. No bands on peripheral smear. Chemistry is still pending at the time of the discharge. Glucose is 190. So far, urine culture is still pending. MEDICATIONS: Medications have been reviewed. Patient is on levofloxacin 750. Today is day 1 on antimicrobial therapy. ASSESSMENT: 1. Complicated left pyelonephritis with hydroureter. The patient is pending urological evaluation for possible intervention. 2. Bilateral nephrolithiasis with obstructive uropathy on the left side with pending Urology consult. 3. Mild acute kidney injury. We will continue with intravenous fluids. 4. History of atrial fibrillation, currently rate controlled. We withheld the anticoagulant because of expectation of surgery. 5. Diabetes mellitus controlled on sliding scale. 6. Dyslipidemia. The patient is on atorvastatin. PLAN: So, in general I think Ms. Whatley is a lot better, hemodynamically stable. We are still pending Urology consult this morning and follow up with further recommendations from them. For now, we are going to continue with the IV fluids. We will continue with pain management and antimicrobial therapy. cc: Logan Stewart MD
[2019-07-17] MEDS ORDERED: CARDIZEM CD PO SCH (09:00)
[2019-07-17] MEDS ORDERED: ASPIRIN PO SCH (09:00)
[2019-07-17] MEDS ORDERED: LIPITOR PO SCH (09:00)
[2019-07-17] MEDS ORDERED: SYNTHROID PO SCH (09:00)
[2019-07-17] MEDS ORDERED: NAMENDA PO SCH (09:00)
[2019-07-17] MEDS: ZANTAC PO SCH (09:47)
--- NOTE | 2019-07-17 10:12 | CONSULTATION ---
DATE OF CONSULTATION: 07/17/2019 CONSULTING PHYSICIAN: Dr. Stewart with hospitalist service. Consultation for left hydronephrosis, hematuria, left flank pain. HISTORY OF PRESENT ILLNESS: 84-year-old female with previous history of urolithiasis in the remote past. Per her daughter who is present at bedside, she has undergone an endoscopic stone extraction around 2005. She presented to the hospital on 07/16/2019 with left flank pain. She was seen earlier in the week by her family physician and was told she had a urinary tract infection. She was given antibiotics but continued to have flank pain and nausea and vomiting. In the emergency room, she underwent CT scan, renal stone search which revealed 6 mm right renal stone without obstruction, significant left hydronephrosis with suspicion for ureteropelvic junction obstruction as well as a dilated left distal ureter with significant metallic artifact from her hip prosthesis precluding diagnosis of a stone or other reasons for obstruction of her ureter. She continues to have pain but is currently comfortable. The pain is intermittent sharp within her flank that radiates to her left lower abdomen. Nothing makes it better, nothing makes it worse. She denies associated fevers, or chills. PAST MEDICAL HISTORY: Diabetes mellitus, coronary artery disease, atrial fibrillation, hypertension, hyperlipidemia, urolithiasis. PAST SURGICAL HISTORY: Right toe surgery, endoscopic stone extraction. ALLERGIES: Ampicillin, erythromycin, penicillin, tetanus. MEDICATIONS: Aspirin, metformin, Cardizem, Eliquis, Lipitor, levothyroxine, memantine, Zantac, Bactrim, Lasix, nitrofurantoin, Cordarone, Lopressor. SOCIAL HISTORY: She denies tobacco, alcohol or illicit drug use. FAMILY HISTORY: Negative for malignancies. REVIEW OF SYSTEMS: Reviewed and 12 systems negative except for the HPI. PHYSICAL EXAMINATION: T 97.9 degrees, P 81, BP 137/56.General: No acute distress. Pleasant female. HEENT: Normocephalic, atraumatic. Cardiovascular: Regular rhythm. Pulmonary: Bilateral breath sounds. Abdomen: Soft, nontender to palpation. Nondistended normal bowel sounds. Back: Mild left CVA tenderness. : Bladder is nontender to palpation. Lymphatic: No cervical lymphadenopathy. No groin lymphadenopathy. Dermatologic: No obvious skin rashes. Neurologic: Alert and x3. Psychiatric: Appropriate mood and affect. LABORATORY STUDIES: White cell count is 11,000, hematocrit is 35. Creatinine is 1.2 up from 1.0. Urinalysis on 07/16/2019 shows multiple red cells, multiple white cells, negative bacteria. CT abdomen and pelvis renal stone search as per HPI. I reviewed the CT images personally. ASSESSMENT/PLAN: 84-year-old female with microhematuria, left flank plain, severe left hydronephrosis from likely ureteropelvic junction obstruction, mildly dilated left ureter with concern for obstruction. She is symptomatic. Her creatinine went up. I have discussed with the patient and family that we could proceed with cystoscopy, left retrograde pyelogram, left ureteroscopy with possible laser lithotripsy, stone basket extraction, and stent placement. I have discussed with her that she may have a stone in her distal ureter versus a tumor versus stricture. We also discussed that she likely does have ureteropelvic junction obstruction. In either case, I should be able to decompress her left side and will make plans depending on our intraoperative findings for future correction. Risks of the procedure including, but not limited to, bleeding, infection, injury to the bladder, injury to adjacent structures, inability to address the blockage and need for additional interventions were explained. Ms. Whatley and her family who is present at bedside voiced understanding once to proceed. PLAN: 1. NPO now. 2. To surgery later this morning for cystoscopy, left retrograde pyelogram, left ureteroscopy with possible laser lithotripsy, stone basket extraction, and stent placement. cc: Rogelio Spence MD
[2019-07-17] MEDS: NS 1,000 ML IV SCH ×2 (10:28→21:03)
[2019-07-17] MEDS: DEMEROL ONE ×2 (13:59→15:32)
[2019-07-17] MEDS: ZOFRAN ONE ×2 (14:04→15:34)
[2019-07-17] MEDS ORDERED: LABETALOL IV ONE (14:30)
--- NOTE | 2019-07-17 15:03 | OPERATIVE NOTE ---
PROCEDURE DATE: 07/17/2019 SURGEON: Dr. Rogelio Spence. PREOPERATIVE DIAGNOSIS: 1. Left hydronephrosis. 2. 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 3. Left dilated ureter. 4. Left flank pain. 5. History of urinary tract infection. 6. Microscopic hematuria. POSTOP DIAGNOSIS: 1. Left hydronephrosis. 2. 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 3. Left dilated ureter. 4. Left flank pain. 5. History of urinary tract infection. 6. Microscopic hematuria. PROCEDURE: 1. Cystoscopy. 2. Left retrograde pyelogram. 3. Left diagnostic ureteroscopy. 4. Placement of 6-Belarusian, 24 cm stent. INDICATIONS: 84-year-old female with history of urolithiasis who has had left flank pain. Was admitted to the hospital and underwent CT imaging revealing significant left hydronephrosis with concern for ureteropelvic junction obstruction as well as a dilated left ureter but no definitive pathologies secondary to artifact from her artificial hip. She presents for further evaluation of her hydronephrosis and dilated ureter. FINDINGS: Her cystoscopy was unremarkable. Left retrograde pyelogram revealed dilation of the distal ureter then normal caliber ureter more proximally and a significant hydronephrosis consistent with ureteropelvic junction obstruction. Diagnostic ureteroscopy revealed no evidence of stone, no evidence of distal ureteral stricture and significant stenosis at the level ureteropelvic junction consistent with obstruction. No pathology such as tumor was seen at the [facility]. PROCEDURE: After obtaining informed consent patient brought to the operating room. Perioperative antibiotics and anesthesia were administered. She was placed lithotomy position, prepped, draped sterile fashion. A 21-Belarusian rigid cystoscope was used to gain access to the bladder which was then examined systematic fashion. She had no evidence of mucosal lesions, a few mild trabeculations, no diverticula. No stones within the bladder lumen. Attention was turned to left ureteral orifice which was cannulated with cone-tipped 5-Belarusian ureteral catheter. Fifty percent diluted Omnipaque dye was then used to perform the left retrograde pyelogram. It revealed dilated left distal ureter, tapering of the ureter to a fairly normal caliber more proximally, narrowing of the ureteropelvic junction with significant hydronephrosis with blunting of the calices. There were no obvious filling defects noted. We then removed the cone-tip ureteral catheter and introduced PTFE wire. It was advanced into the left renal pelvis. This was followed by introduction rigid ureteroscope alongside of the wire. She had mild narrowing her ureter orifice but no definitive stricture, no stones. The left ureter was dilated but again no lesions or stones were seen. As I advanced the ureteroscope her proximal ureter became more normal in caliber just like retrograde pyelogram seen. At the level ureteropelvic junction there was significant narrowing but I was able to introduce the ureteroscope into the renal pelvis. A copious amount of white cloudy material was seen and I irrigated out her renal pelvis. Examination renal pelvis revealed hyperemic mucosa but no evidence of lesions, no evidence of stones. There was no tumor at ureteropelvic junction. The ureteroscope was then withdrawn. We elected to place ureteral stent . In a standard fashion 6-Belarusian, 24 cm ureteral stent was advanced over the wire via the cystoscope with the proximal coil position confirmed fluoroscopically in the renal pelvis and distal coil directly visualized. Her bladder was emptied, the string was detached from the stent. She was extubated taken to PACU further recovery. ESTIMATED BLOOD LOSS: 0 mL. COMPLICATIONS: None. DISPOSITION: To PACU, subsequently floor. I have discussed with the family that she did not have a stone in her ureter and that she does have concerning ureteropelvic junction obstruction. We discussed serial stent exchanges versus consideration of robotic pyeloplasty. The family wants to think on that. cc: Rogelio Spence MD MTDD
[2019-07-17] MEDS ORDERED: DITROPAN PO PRN (15:11)
[2019-07-17] MEDS: LEVAQUIN 750 MG/D5W 750 MG/150 ML IVPB IV SCH (15:16)
[2019-07-17] MEDS ORDERED: NARCAN IV ONE ×3 (15:56→17:03)
[2019-07-17] MEDS ORDERED: NS 1,000 ML IV ONE ×4 (15:58→17:00)
[2019-07-17] MEDS ORDERED: OFIRMEV 1000 MG/ISOTONIC SOLN 1,000 MG/100 ML BOTTLE IV PRN ×2 (16:09→16:44)
[2019-07-17] MEDS ORDERED: AZACTAM 2 GM in NS 100 ML IV ONE ×2 (16:10→17:00)
[2019-07-17 16:12] LABS: ALLEN TEST YES; BE 0.8 mmoll (-3.0-3.0); BLOOD TYPE ARTERIAL; HCO3-(ACT) 25.5 mmoll (20.0-26.0); METHB 1.2 % (0.0-1.5); O2(CT) 15.1 mL/dL (15.0-23.0); O2HB 92.6 % (95.0-99.0); PCO2(98.6) 32 mmHg (35-45); PO2(98.6) 58 mmHg (60-100); SAMPLE BLOOD; SAO2 94.8 % (95.0-100.0); THB 11.6 g/dL (11.5-17.4); pH(98.6) 7.48 (7.35-7.45)
[2019-07-17 16:14] LABS: MODALITY CANNULA
[2019-07-17] MEDS ORDERED: NS 1,000 ML IV SCH ×2 (16:15→17:00)
[2019-07-17 16:32] LABS: BASO# 0.01 X1000 (0.0-0.2); BASO% 0.4 % (0.0-0.8); EOS# 0.02 X1000 (0.0-0.7); EOS% 0.9 % (0.0-10.0); IMM GRAN# 0.04 X1000 (0.0-0.04); IMM GRAN% 1.8 % (0.0-0.5); LYMPH# 0.32 X1000 (1.2-3.4); MCH 29.6 PG (27-31); MCHC 33.3 g/dL (33-37); MCV 88.9 FL (81-99); MONO# 0.01 X1000 (0.11-0.59); MONO% 0.4 % (1.7-9.3); MPV 9.3 FL (7.4-10.4); NEUT# 1.88 X1000 (1.4-6.5); NEUT% 82.5 % (42.2-75.2); PLT 293 X1000 (130-400); RBC 4.05 XMIL (4.2-5.4); WBC 2.28 X1000 (4.8-10.8)
[2019-07-17 16:48] LABS: CALCIUM 8.6 mg/dL (8.8-10.2); CREATININE 1.2 mg/dL (0.5-0.9); POTASSIUM 4.1 mmol/L (3.5-5.1)
[2019-07-17 17:02] LABS: BANDS 14 % (0-1); EOS 2 % (1-10); LARGE PLATELETS OCCASIONAL; LYMPHS 16 % (21-51); MONO 2 % (1-9); SEGS 66 % (42-75)
[2019-07-17] MEDS: AZACTAM 1 GM in NS 50 ML IV SCH (17:10)
[2019-07-17 17:11] LABS: URINE SOURCE CATH
--- NOTE | 2019-07-17 17:11 | Diag Imaging Result Doc PS360 ---
CT HEAD W/O CONTRAST - 07/17/2019 INDICATION: AMS CAT call COMPARISON: None FINDINGS: There is mild diffuse cerebral atrophy. There is mild periventricular white matter chronic microvascular disease. The cheli is also affected. No intracranial mass or hemorrhage. The skull is intact. The sinuses are clear. There is advanced densely calcified vascular disease of the vertebral basilar arteries and the internal carotid arteries. IMPRESSION: No acute process. This exam was performed using automated exposure control, adjustment of mA or kV according to patient size, and/or use of iterative reconstruction technique Electronically signed by Nilton Garcia 07/17/2019 5:09 PM
[2019-07-17] MEDS: OFIRMEV 1000 MG/ISOTONIC SOLN 1,000 MG/100 ML BOTTLE IV PRN ×2 (17:30→22:41)
[2019-07-17 17:32] LABS: BILIRUBIN URINE NEGATIVE (NEGATIVE); BLOOD URINE LARGE (NEGATIVE); COLOR BROWN; GLUCOSE URINE NEGATIVE (NEGATIVE); KETONE URINE NEGATIVE (NEGATIVE); LEUKOCYTES URINE LARGE (NEGATIVE); NITRITE URINE NEGATIVE (NEGATIVE); PROTEIN URINE 100 mg/dL (NEGATIVE); SP GRAVITY URINE 1.009; TURBIDITY URINE TURBID (CLEAR); UR EPITHELIAL CELLS <10 /HPF (<10); URINE BACTERIA NEGATIVE /HPF; URINE RBC TNTC /HPF (<10); URINE WBC TNTC /HPF (<10); UROBILINOGEN URINE NORMAL (NORMAL)
[2019-07-17 17:45] LABS: URINE CASTS NONE SEEN; URINE CRYSTALS NONE SEEN; URINE YEAST NONE SEEN
--- NOTE | 2019-07-17 18:00 | PROGRESS NOTE ---
DATE: 07/17/2019 SUBJECTIVE: This afternoon Ms. Whatley went for urological intervention which included a cystoscopy, left ureter pyelogram, left diagnostic ureteroscopy and placement of a 6-Latvian 24 stent in the left ureter. Subsequently she was brought back to her bed. A CAT call was made because she was unresponsive. A core temperature was about 100 and 102.7, that went up to 104.8. She was very obviously trembling. The patient was evaluated by Dr. Blum and Ms. Ivette Hernandez, the MULTIPLE TUBE WINDING MACHINE OPERATOR. A decision was made to bring her to the ICU. A review upon examining Ms Whatley currently in the ICU she is more awake but she is with some garbled speech but she seems to follow some commands. She does not seems to have any neurological deficit. Her chest is clear. No crepitations.Cardiovascular: Slightly tachycardic and a flow murmur in the pulmonary area. Abdomen: Soft. Some tenderness to the left. Extremities: No pedal edema. LAB: Patient immediate lab that was done shows leukopenia with bandemia of 14% platelets. Chemistry is also reviewed. No major change comparing to the 1 from this morning. Blood cultures have also been done. ASSESSMENT: 1. Altered mental status. CT head scan has been unremarkable. This is associated with fever, tachycardia and bandemia all suggestive of severe sepsis. The patient is currently in the intensive care unit. We are going to continue with fluids. We have added aztreonam to her current antimicrobial coverage since she is allergic to penicillins. 2. I have explained my findings and the plan to the and the son who where both at the bedside at the time of the encounter. 3. Will continue to monitor Ms Whatley hemodynamics. cc: Logan Stewart MD Critical time spent 45 minutes MTDD
[2019-07-17] MEDS ORDERED: SODIUM BICARBONATE 8.4% 150 MEQ in D5W 1,000 ML IV SCH (20:00)
--- NOTE | 2019-07-17 20:18 | Diag Imaging Result Doc PS360 ---
CHEST-PORTABLE - 07/17/2019 INDICATION: abnormal chest exam COMPARISON: 07/16/2019 FINDINGS: There is pulmonary vascular congestion. There is some new hazy infiltrate at the left hilum. Heart size is top normal. No pneumothorax or pleural effusion. IMPRESSION: Hazy left perihilar infiltrate which may represent pneumonia. Pulmonary vascular congestion. Electronically signed by Nilton Garcia 07/17/2019 8:16 PM
--- NOTE | 2019-07-17 20:43 | PULMONOLOGY CONSULTATION ---
DATE: 07/17/2019 REQUESTING PHYSICIAN: Dr. Blum. REASON FOR CONSULTATION: Septic shock with acute hypoxemia. HISTORY OF PRESENT ILLNESS: Ms Whatley is an 84-year-old white female, never smoker, history of known coronary artery disease with known history of nephrolithiasis who developed urinary tract symptoms earlier this week along with blood in her urine. The patient was initiated on antibiotics. The patient presented to the emergency room yesterday morning with nausea and vomiting and left upper quadrant pain. Urinalysis revealed hky-nqmffkhi-vz-count white blood cells along with hematuria. Renal CT was performed which revealed severe left hydronephrosis with apparent ureteropelvic junction stenosis. The patient also had nephrolithiasis on the right. The patient was taken to the operating room this afternoon by Dr. Spence. There was significant narrowing of the left ureteropelvic junction and copious amounts of cloudy material was irrigated from the left renal pelvis. The patient was recovered and transferred back to the floor. The patient subsequently developed an escalating fever that peaked at 104.8 degrees. The patient developed altered mental status and hypotension. CT scan of the brain was performed which revealed no acute process. The patient has been transferred to the Intensive Care Unit. She has received 2 fluid boluses. She is now arousable. She will answer questions. She is without specific complaints. PAST MEDICAL HISTORY: 1. Coronary artery disease with prior stent placement. The patient denies prior myocardial infarction. 2. Type 2 diabetes mellitus. 3. Atrial fibrillation. 4. Dyslipidemia. 5. Nephrolithiasis. 6. Hypertension. 7. 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 8. Gastroesophageal reflux. SOCIAL HISTORY: She is a never smoker. No alcohol or drug use. FAMILY HISTORY: Positive for unspecified cancer, dementia, and strokes. REVIEW OF SYSTEMS: Is notable for chills, confusion which is improving, decrease left-sided pain. PHYSICAL EXAMINATION: Reveals a well-developed, well-nourished, white female who is awake and alert and follows commands. Current temperature 100.8 degrees, maximum temperature 104.8 degrees, current blood pressure 97/62, heart rate 94, respiratory rate 21, oxygen saturation 96% on 4 L per nasal cannula.HEENT: Pupils are equal and reactive. Oropharynx is clear. Neck: Supple. Chest: Reveals good air entry bilaterally. No wheezing or rhonchi. Cardiac: Irregular rhythm. Normal S1, normal S2. Abdomen: Soft with diminished bowel sounds. Extremities: Slightly cool to the touch. LABORATORIES: Chest x-ray reveals generous cardiac silhouette, mild cephalization of flow. Sodium 135, potassium 4.1, chloride 100, bicarbonate 21, anion gap 14, BUN 20, creatinine 1.2, glucose 179, lactate less than 0.2. White blood count 2.28, hemoglobin 12.0, platelet count 293,000. Arterial blood gas reveals a pH of 7.48, pCO2 of 32, pO2 of 58 on 4 L per nasal cannula. IMPRESSION: An 84-year-old with sepsis, hyperthermia, acute hypoxemic respiratory failure, leukopenia, bandemia, altered mental status, acute hypoxemic respiratory failure. The patient clinically appears to be rapidly improving with antipyretics, fluids and antibiotics. The patient may have transiently seeded the bloodstream with the procedure to drain her hydronephrosis. Her blood pressure remains marginal, although her urine output is improving. RECOMMENDATIONS: 1. Continue current antibiotics. 2. Continue oxygen for hypoxemic respiratory failure. 3. One additional fluid bolus. Will supplement with sodium bicarb given mild hyponatremia and decrease in CO2 level. 4. Will initiate gastric acid suppression with history. 5. Follow up labs and chest x-ray tomorrow. If she continues to improve, she should be a candidate to transfer back to the floor. cc: Lauri Pena MD
[2019-07-17] MEDS: PEPCID IV SCH (21:03)
[2019-07-17] MEDS: SODIUM CHLORIDE 0.9% INJ SCH (21:03)
[2019-07-17] MEDS ORDERED: ATIVAN IV ONE (22:21)
[2019-07-18] MEDS ORDERED: AZACTAM 1 GM in NS 50 ML IV SCH ×2
[2019-07-18] MEDS: AZACTAM 1 GM in NS 50 ML IV SCH ×3 (00:06→16:16)
[2019-07-18] MEDS: NS 1,000 ML IV SCH ×4 (01:30→19:55)
[2019-07-18] MEDS ORDERED: LASIX IV ONE (02:00)
[2019-07-18] MEDS ORDERED: LEVOPHED 8 MG in D5 1/2 NS 250 ML IV SCH (02:45)
[2019-07-18 04:52] LABS: ALLEN TEST YES; BE -0.9 mmoll (-3.0-3.0); BLOOD TYPE ARTERIAL; HCO3-(ACT) 24.2 mmoll (20.0-26.0); METHB 0.9 % (0.0-1.5); O2(CT) 15.3 mL/dL (15.0-23.0); O2HB 95.3 % (95.0-99.0); PCO2(98.6) 37 mmHg (35-45); PO2(98.6) 73 mmHg (60-100); SAMPLE BLOOD; SAO2 97.2 % (95.0-100.0); THB 11.4 g/dL (11.5-17.4); pH(98.6) 7.41 (7.35-7.45)
[2019-07-18 04:53] LABS: MODALITY CANNULA
[2019-07-18] MEDS: HUMALOG SUBQ SCH ×4 (06:08→21:05)
[2019-07-18 07:14] LABS: BASO# 0.01 X1000 (0.0-0.2); BASO% 0.1 % (0.0-0.8); EOS# 0.02 X1000 (0.0-0.7); EOS% 0.1 % (0.0-10.0); HEMATOCRIT 30.1 % (37.0-47.0); HEMOGLOBIN 9.9 g/dL (12.0-16.0); IMM GRAN# 0.12 X1000 (0.0-0.04); IMM GRAN% 0.7 % (0.0-0.5); LYMPH# 0.31 X1000 (1.2-3.4); LYMPH% 1.9 % (20.5-51.1); MCH 29.4 PG (27-31); MCHC 32.9 g/dL (33-37); MCV 89.3 FL (81-99); MONO# 0.44 X1000 (0.11-0.59); MONO% 2.7 % (1.7-9.3); MPV 10.4 FL (7.4-10.4); NEUT# 15.55 X1000 (1.4-6.5); NEUT% 94.5 % (42.2-75.2); PLT 335 X1000 (130-400); RBC 3.37 XMIL (4.2-5.4); RDW 13.1 % (11.5-14.5); WBC 16.45 X1000 (4.8-10.8)
[2019-07-18 07:29] LABS: ALBUMIN 2.6 g/dL (3.5-5.0); CALCIUM 7.1 mg/dL (8.8-10.2); CREATININE 0.9 mg/dL (0.5-0.9); POTASSIUM 3.2 mmol/L (3.5-5.1); TOTAL BILIRUBIN 0.72 mg/dL (0.20-1.00); TOTAL PROTEIN 5.2 g/dL (6.3-8.3)
[2019-07-18 07:34] LABS: LYMPHS 2 % (21-51); MONO 3 % (1-9); SEGS 95 % (42-75)
--- NOTE | 2019-07-18 07:52 | Diag Imaging Result Doc PS360 ---
EXAM: CHEST-PORTABLE - 07/18/2019 HISTORY: abnormal exam TECHNIQUE: Portable chest COMPARISON: 07/17/2019 FINDINGS: There has been interval decrease in ill-defined perihilar infiltrate on the left. There are no other interval changes identified. IMPRESSION: Decrease in ill-defined perihilar infiltrate on the left. Electronically signed by Florin Marroquin 07/18/2019 7:50 AM
[2019-07-18] MEDS ORDERED: MAGNESIUM SULFATE 4 GM/S.W.I. 4 GM/100 ML IVPB IV ONE (08:10)
[2019-07-18] MEDS ORDERED: B & O 15A SUPP PR PRN (08:56)
[2019-07-18] MEDS: POTASSIUM CHLORIDE 20 MEQ/SWI 20 MEQ/100 ML IVPB IV SCH ×2 (09:07→13:52)
[2019-07-18] MEDS: PEPCID IV SCH ×2 (09:08→21:37)
[2019-07-18] MEDS: OFIRMEV 1000 MG/ISOTONIC SOLN 1,000 MG/100 ML BOTTLE IV PRN ×2 (09:08→18:31)
--- NOTE | 2019-07-18 09:28 | PROGRESS NOTE ---
DATE: 07/18/2019 SUBJECTIVE: This morning, Ms. Whatley is more alert, more conversational. She refers to be doing a whole lot better. There is a daughter and son-in-law at the bedside at the time of the encounter. They also refer that they see Ms. Whatley better. Overnight, I understand that she became more hypotensive, so she was started on norepinephrine. Since then, she seems to be doing a lot better. Blood pressures have normalized, and they are weaning her off. OBJECTIVE: Current Vital Signs: Blood pressure is 114/55, pulse of 96, respirations 15, temperature 99 degrees. General: Ms. Whatley is an 84-year-old, elderly, female. She is in bed. She is not in any distress. Mucosa is pink and moist. Anicteric. Acyanotic. Neck: Supple. Chest: Good air entry bilaterally. A few crackles in the posterior lung hathaway. Cardiovascular: Regular rate and rhythm. There is a 2/6 TR murmur. No gallops. GI: Abdomen is soft, distended, but nontender. Bowel sounds present. The costophrenic angles are now nontender. Extremities: No pedal edema. FELT HAT MELLOWING MACHINE OPERATOR: The patient is awake, alert, hard of hearing. LABORATORY DATA: WBC is up to 16.45, hemoglobin is 9.9, platelet count of 335,000, there are 95% neutrophils on the peripheral smear. Chemistry is also reviewed. Bicarb is 22 with a gap of 18. Magnesium is 0.8. AST and ALT are minimally elevated. Plasma lactate is down to 3.2. ASSESSMENT: 1. Septic shock. The patient is currently on Levophed. Seems to be doing a lot better. Vitals are now more stable, and she has been gradually weaned off on the pressor. Blood cultures and urine culture are still pending results. 2. Complicated left pyelonephritis with hydronephrosis. The patient is status post cystoscopy, left retrograde pyelogram, and placement of a J-stent in the left ureter. Postoperatively, the patient became more altered, more septic, and was transferred to the intensive care unit. She seems to be a lot better today. 3. Altered mental status, presumably from sepsis-induced encephalopathy versus metabolic versus medications. Seems to have been transient. The patient's mentation is now back to baseline. She is responsive. She is following commands. 4. History of atrial fibrillation. Currently rate controlled. 5. Diabetes mellitus. Will continue with sliding scale. Will also start the patient on long- acting insulin once she starts her mechanical soft diabetic diet. 6. Dyslipidemia. Continue with atorvastatin. 7. Mild gap metabolic acidosis secondary to lactic acid from septic shock. Will continue with the intravenous fluids. 8. Electrolyte abnormality, including severe hypomagnesemia and mild hypopotassemia. Will continue to replace. 9. Transaminitis, most likely secondary to ischemic liver injury. Will follow daily labs on this, and avoid any hepatotoxic drugs. In general, Ms. Whatley seems to be a lot more stable today than yesterday. Blood pressures have now stabilized on vasopressor, and she is being weaned off. Will continue to replace all her electrolyte abnormalities. Will start her on mechanical soft diet this morning, and we will continue with the current antimicrobial therapy and pending the results of the blood cultures. cc: Logan Stewart MD
[2019-07-18] MEDS: LANTUS INSULIN SUBQ SCH (09:36)
[2019-07-18] MEDS: NORCO-7.5 PO PRN ×2 (11:21→22:33)
[2019-07-18] MEDS: DITROPAN PO SCH ×2 (11:21→20:01)
--- NOTE | 2019-07-18 19:08 | PROGRESS NOTE ---
DATE: 07/18/2019 Ms. Whatley is denying any left flank pain. She reports her chills have improved. She denies nausea. PHYSICAL EXAMINATION: Vitals: T 98.9 degrees, P 89, BP 103/51. General: No acute distress. Pleasant female. Abdomen: Soft, nontender, and nondistended. Back: No CVA tenderness. : Bladder is nontender to palpation. PERTINENT LABORATORY DATA: White cell count was 16,000. Creatinine is 0.9. ASSESSMENT/PLAN: 84-year-old female with basically significant left pyelonephritis secondary to left ureteropelvic junction obstruction who underwent decompression of her collecting system by me on 07/17/2019. She had an episode of significant fever and was transferred to ICU with sepsis protocol. She appears to be doing much better now. I have discussed with her that we will keep the stent in for at least a couple of weeks and decide on definitive treatment of her ureteropelvic junction obstruction. PLAN: 1. No further urologic intervention needed at this time. 2. Agree with broad antibiotics. 3. We will follow. cc: Rogelio Spence MD
[2019-07-18] MEDS: LOPRESSOR PO SCH (20:00)
--- NOTE | 2019-07-18 20:52 | PULMONOLOGY PROGRESS NOTE ---
DATE: 07/18/2019 SUBJECTIVE: The patient is awake, alert, and conversant. She reports she continues to feel better. She is not hungry at this juncture. OBJECTIVE: Temperature 99.2 degrees, heart rate 95, respiratory rate 15, blood pressure 121/65, oxygen saturation 97% on 5 L per nasal cannula.HEENT: Pupils are equal and reactive. Oropharynx is clear. Neck: Supple. Chest: Reveals good air entry bilaterally with occasional crackles in the left base. Cardiac exam: S1, S2. Abdomen: Soft and without hepatosplenomegaly. Extremities: Without edema. LABORATORIES: Sodium 141, potassium 3.2, chloride 101, bicarbonate 22, anion gap 18, BUN 17, creatinine 0.9, magnesium 0.8. Arterial blood gas reveals a pH 7.41, pCO2 of 37, PO2 of 73 with a lactate of 3.1. White blood count 16.45, hemoglobin 9.9, platelet count 335,000. Microbiology reveals no new culture data. IMPRESSION: An 84-year-old with 1. Septic shock. 2. Hyperthermia. 3. Acute hypoxemic respiratory failure. 4. Increased anion gap/lactic acidosis. The patient continues to rapidly improve. PLAN: 1. Continue current antibiotics. 2. Continue fluids and wean as vasopressors are titrated off. 3. Continue gastric acid suppression. 4. Continue antibiotics. 5. Follow up chest x-ray tomorrow. cc: Lauri Pena MD
[2019-07-19] MEDS ORDERED: ATIVAN IV ONE (00:01)
[2019-07-19] MEDS: AZACTAM 1 GM in NS 50 ML IV SCH ×2 (01:45→08:24)
[2019-07-19 04:40] LABS: ALLEN TEST YES; BE 0.9 mmoll (-3.0-3.0); BLOOD TYPE ARTERIAL; HCO3-(ACT) 25.6 mmoll (20.0-26.0); METHB 0.9 % (0.0-1.5); O2(CT) 15.5 mL/dL (15.0-23.0); O2HB 94.9 % (95.0-99.0); PCO2(98.6) 46 mmHg (35-45); PO2(98.6) 73 mmHg (60-100); SAMPLE BLOOD; SAO2 96.9 % (95.0-100.0); THB 11.6 g/dL (11.5-17.4); pH(98.6) 7.37 (7.35-7.45)
[2019-07-19 04:41] LABS: MODALITY CANNULA
[2019-07-19] MEDS: HUMALOG SUBQ SCH ×4 (06:15→22:13)
--- NOTE | 2019-07-19 06:34 | Diag Imaging Result Doc PS360 ---
EXAM: CHEST-PORTABLE HISTORY: abnormal exam TECHNIQUE: Portable chest single view COMPARISON: 07/18/2019 FINDINGS: There are increased interstitial markings in the left lung base with a small left pleural effusion. The findings are slightly more prominent than on the prior study. The heart is mildly enlarged. IMPRESSION: Mild interval worsening Electronically signed by Dinesh Jorgensen 07/19/2019 6:32 AM
[2019-07-19 06:50] LABS: RBC 3.53 XMIL (4.2-5.4)
[2019-07-19 06:51] LABS: BASO# 0.01 X1000 (0.0-0.2); BASO% 0.1 % (0.0-0.8); EOS# 0.17 X1000 (0.0-0.7); EOS% 1.1 % (0.0-10.0); HEMATOCRIT 31.5 % (37.0-47.0); HEMOGLOBIN 10.3 g/dL (12.0-16.0); IMM GRAN# 0.55 X1000 (0.0-0.04); IMM GRAN% 3.5 % (0.0-0.5); LYMPH# 0.66 X1000 (1.2-3.4); LYMPH% 4.2 % (20.5-51.1); MCH 29.2 PG (27-31); MCHC 32.7 g/dL (33-37); MCV 89.2 FL (81-99); MONO# 0.56 X1000 (0.11-0.59); MONO% 3.6 % (1.7-9.3); MPV 10.2 FL (7.4-10.4); NEUT# 13.75 X1000 (1.4-6.5); NEUT% 87.5 % (42.2-75.2); PLT 261 X1000 (130-400); RDW 13.4 % (11.5-14.5)
[2019-07-19 06:56] LABS: MAGNESIUM 2.1 mg/dL (1.5-2.7); PHOSPHORUS 2.7 mg/dL (2.7-4.5)
[2019-07-19 07:02] LABS: ALB/GLOB RATIO 0.8; ALBUMIN 2.7 g/dL (3.5-5.0); CALCIUM 7.8 mg/dL (8.8-10.2); CREATININE 0.9 mg/dL (0.5-0.9); POTASSIUM 3.8 mmol/L (3.5-5.1); TOTAL BILIRUBIN 0.5 mg/dL (0.20-1.00); TOTAL PROTEIN 5.9 g/dL (6.3-8.3)
[2019-07-19 08:11] LABS: BANDS 16 % (0-1); LYMPHS 2 % (21-51); SEGS 82 % (42-75)
--- NOTE | 2019-07-19 08:26 | Diag Imaging Result Doc PS360 ---
EXAM: RETROGRADES 2 OR 3 FILMS HISTORY: LT FLANK PAIN, LT HYDRO, LT RETRO, LT STENT PLACEMENT TECHNIQUE: 17 films submitted COMPARISON: None. FINDINGS: Early film show retrograde filling of the left ureter. No obstruction to retrograde flow. The renal pelvis and calyces are markedly dilated. Later films show the placement of a wire within the ureter. A stent was placed over the wire and the wire was removed. IMPRESSION: Left ureteral stent placed Electronically signed by Dinesh Jorgensen 07/19/2019 8:23 AM
[2019-07-19] MEDS: CARDIZEM CD PO SCH (08:29)
[2019-07-19] MEDS: LIPITOR PO SCH (08:30)
[2019-07-19] MEDS: DITROPAN PO SCH ×2 (08:30→20:12)
[2019-07-19] MEDS: LANTUS INSULIN SUBQ SCH (08:30)
[2019-07-19] MEDS: CORDARONE PO SCH (08:30)
[2019-07-19] MEDS: LOPRESSOR PO SCH ×2 (08:31→20:12)
[2019-07-19] MEDS: SODIUM CHLORIDE 0.9% INJ SCH (09:32)
[2019-07-19] MEDS: PEPCID IV SCH ×3 (09:32→22:51)
[2019-07-19] MEDS: LEVAQUIN PO SCH (10:16)
--- NOTE | 2019-07-19 11:41 | PROGRESS NOTE ---
DATE: 07/19/2019 SUBJECTIVE: This morning, Ms. Whatley refers to be doing a lot better. No new complaints. The was at the bedside at the time of the encounter. Ms. Whatley has also been tolerating her diet. OBJECTIVE: Vital Signs: Blood pressure is 130/70, pulse of 81, respirations are 16, temperature is 97.8 degrees. Patient has been afebrile for the past 24 hours. General Examination: Ms. Whatley is an elderly, 84-year-old female. She is in bed. No distress. HEENT: Mucosa is pink and moist. Anicteric. Acyanotic. Neck: Supple. Chest: Good air entry bilaterally. There were no crepitations. No rhonchi. Cardiovascular: Regular rate and rhythm. GI: Abdomen is soft. Distended but nontender. Bowel sounds present. There is no tenderness in the costophrenic angle anymore. Extremities: No pedal edema. CUSTOMS CONSULTANT: The patient was sleepy but easily arousable. No focal deficit. Laboratory Data: WBC is 15.70, hemoglobin is 10.3, platelet count of 361,000. There is still about 16% of bands on the peripheral smear. Chemistry is also reviewed. Sodium is 133. AST and ALT are all trending down. Microbiology Data: Urine culture has come back negative. Blood cultures have also been 48 hours negative. The patient has been off the pressor for more than 24 hours. ASSESSMENT: 1. Septic shock, resolved. Patient has been off the Levophed for the past 24 hours. 2. Complicated left pyelonephritis with hydronephrosis. The patient is status post double-J stent placement in the left ureter. 3. Altered mental status secondary to infectious encephalopathy, suspect secondary to infectious and metabolic encephalopathy, improved. 4. History of atrial fibrillation, controlled. 5. Diabetes mellitus, controlled on insulin regimen. 6. Transaminitis secondary to ischemic liver injury, doing well. PLAN: In general, I think Ms. Whatley is doing a lot better. She got admitted on 07/16/2019 because of left flank pain. Imaging studies revealed a severe ureteropelvic junction stenosis and left pyelonephritis. She was started on antibiotics. She was sent to surgery on 07/17/2019. Intervention was done. A double-J stent was placed. Subsequently, Ms. Whatley became hemodynamically unstable, very confused, and was transferred to the ICU. Antimicrobials were broadened up and she became more stable. This morning, her vitals are okay. She has been off of the Levophed. Her blood cultures have come back negative so we are going to narrow down the antimicrobial therapy to only p.o. Levaquin. We are going to transfer her from the ICU to the medical floor. We are going to discontinue the Keys catheter. We are going to encourage her to participate with physical therapy and we will start planning her discharge in the next 24 to 48 hours, depending on the rest of her hospital course. This morning, we will discontinue the IV fluids. cc: Logan Stewart MD
[2019-07-19] MEDS ORDERED: TYLENOL PO PRN (13:47)
--- NOTE | 2019-07-19 16:45 | PULMONOLOGY PROGRESS NOTE ---
DATE: 07/19/2019 SUBJECTIVE: The patient is awake, alert, and conversant. She is tolerating p.o. intake. She is without specific complaints. OBJECTIVE: Vital Signs: The patient has been afebrile for the last 24 hours. Blood pressure 130/70, heart rate 81, respiratory rate 10, oxygen saturation 96% on nasal cannula. HEENT: Pupils are equal and reactive. Oropharynx appears clear. Neck: Supple. Chest: Reveals good air entry bilaterally with slight decreased breath sounds left base. Cardiac: S1-S2. Abdomen: Soft. Extremities: Are without edema. LABORATORIES: White blood count 15.7, hemoglobin 10.3, platelet count 261,000. Microbiology reveals no new culture data. Arterial blood gas reveals pH 7.37, pCO2 of 46, pO2 of 73. Sodium 133, potassium 3.8, chloride 98, bicarbonate 24, BUN 18, creatinine 0.9. Chest x-ray reveals small effusion at the left base with possible atelectasis versus infiltrate. IMPRESSION: 1. 84-year-old with septic shock. 2. Hyperthermia. 3. Acute hypoxemic respiratory failure. 4. Hydronephrosis status post stent placement. 5. Abnormal chest x-ray. PLAN: 1. Continue current antibiotic regimen. 2. Wean oxygen as tolerated. 3. Continue gastric acid suppression. 4. Add incentive spirometry. 5. Two-view chest x-ray tomorrow. Hopefully she can be discharged home soon. cc: Lauri Pena MD
[2019-07-19] MEDS: NORCO-7.5 PO PRN (22:12)
[2019-07-20 06:34] LABS: BASO# 0.01 X1000 (0.0-0.2); BASO% 0.1 % (0.0-0.8); EOS# 0.12 X1000 (0.0-0.7); HEMATOCRIT 30.3 % (37.0-47.0); IMM GRAN# 0.18 X1000 (0.0-0.04); IMM GRAN% 1.5 % (0.0-0.5); LYMPH# 0.94 X1000 (1.2-3.4); LYMPH% 7.6 % (20.5-51.1); MCH 29.2 PG (27-31); MCV 88.3 FL (81-99); MONO# 0.38 X1000 (0.11-0.59); MONO% 3.1 % (1.7-9.3); MPV 9.8 FL (7.4-10.4); NEUT# 10.68 X1000 (1.4-6.5); NEUT% 86.7 % (42.2-75.2); PLT 253 X1000 (130-400); RBC 3.43 XMIL (4.2-5.4); RDW 13.1 % (11.5-14.5); WBC 12.31 X1000 (4.8-10.8)
[2019-07-20] MEDS: HUMALOG SUBQ SCH ×4 (06:49→22:06)
[2019-07-20 07:04] LABS: AGAP 11; ALB/GLOB RATIO 0.7; ALBUMIN 2.3 g/dL (3.5-5.0); ALKALINE PHOSPHATASE 146 U/L (32-104); BUN 19 mg/dL (8-22); CALCIUM 8.3 mg/dL (8.8-10.2); CHLORIDE 102 mmol/L (98-107); COSMO 281; CREATININE 0.7 mg/dL (0.5-0.9); ESTIMATED GFR > 60; GLUCOSE 129 mg/dL (70-104); GOT 23 U/L (10-30); GPT 29 U/L (10-36); POTASSIUM 3.3 mmol/L (3.5-5.1); SODIUM 139 mmol/L (136-145); TCO2 26 mmol/L (25-35); TOTAL BILIRUBIN 0.51 mg/dL (0.20-1.00); TOTAL PROTEIN 5.5 g/dL (6.3-8.3)
--- NOTE | 2019-07-20 07:46 | Diag Imaging Result Doc PS360 ---
EXAM: CHEST-2 VIEWS 07/20/2019 HISTORY: abnormal exam TECHNIQUE: PA and lateral chest COMMENT: There is ill-defined opacity in the left lower lobe which has improved since 07/19/2019. The lungs are slightly better expanded. IMPRESSION: Improving left lower lobe atelectasis and/or pneumonia. Electronically signed by Gio Sarabia 07/20/2019 7:44 AM
[2019-07-20] MEDS: LIPITOR PO SCH (10:20)
[2019-07-20] MEDS: LANTUS INSULIN SUBQ SCH (10:20)
[2019-07-20] MEDS: LEVAQUIN PO SCH (10:20)
[2019-07-20] MEDS: LOPRESSOR PO SCH ×2 (10:21→22:05)
[2019-07-20] MEDS: CARDIZEM CD PO SCH (10:21)
[2019-07-20] MEDS: DITROPAN PO SCH ×2 (10:21→22:05)
[2019-07-20] MEDS: CORDARONE PO SCH (10:21)
[2019-07-20] MEDS: PEPCID IV SCH ×2 (11:46→22:04)
--- NOTE | 2019-07-20 16:56 | PROGRESS NOTE ---
DATE: 07/20/2019 INTERVAL HISTORY: Patient with some continued waxing and waning of her mental status. Not really confused at the moment, but reportedly was overnight. Remains afebrile. No other acute events. No new complaints. Extensive discussion with the patient and family regarding current situation and plan. I believe that the patient may be weak enough that it may be difficult for them to assist her at home and desire discharge to SNF or to rehab. Reviewed physical therapy documentation. She required only minimal assist to stand, but did have a tendency to fall backward and required monitoring to prevent her from falling, so she is likely appropriate for rehab. No other acute events overnight. No other complaints. REVIEW OF SYSTEMS: A 12-point review of systems negative except as per interval history. LABORATORIES: WBC 12.3, hemoglobin 10, hematocrit 30.3, platelets 253,000. Sodium 139, potassium 3.3, BUN 19, creatinine 0.7, glucose 129. IMAGING STUDIES: Chest x-ray with improving left lower lobe atelectasis and/or pneumonia. PHYSICAL EXAMINATION: Vital Signs: T-max 98.4 degrees, pulse 82, respirations 18, blood pressure 141/94, and O2 saturation 95% on room air. General: In no acute distress. Vital signs are as above. HEENT and Neck: Normocephalic, atraumatic. Moist mucous membranes. No cervical adenopathy. Cardiovascular: Regular rate and rhythm. No murmurs noted. Pulmonary: Clear to auscultation bilaterally. No wheezing, rales, or rhonchi. Abdomen: Soft, nontender, nondistended. Bowel sounds positive. No CVA tenderness at this point. Extremities: Peripheral pulses intact. No clubbing or cyanosis. Neurologic: Cranial nerves grossly intact. Mild global weakness, but no focal deficits identified. Psychiatric: Normal mood and affect. Awake, alert. The patient was somewhat hesitant with orientation questions, but did eventually get them all correct. Skin: No new rashes or lesions identified. ASSESSMENT AND PLAN: 1. Left pyelonephritis with hydronephrosis and septic shock. The shock has remained resolved. Patient is status post stent in the left ureter. Remains on antibiotics with Levaquin for urinary tract infection and possible pneumonia. 2. Possible pneumonia. The patient with some suggestion of pneumonia on chest x-ray just after admission. Does seem to be improving on oral Levaquin, which we will continue. 3. Metabolic encephalopathy. Likely combination of acute infection in the setting of underlying dementia. Family does describe what sounds like some occasional sundowning at home. We will minimize sedating medications as much as we can and consider Seroquel if agitation gets severe. 4. History of atrial fibrillation. Has been largely normal sinus rhythm here. Continue to monitor. 5. Diabetes mellitus. Reasonable control on current regimen, monitor. 6. Transaminitis, likely related to acute infection, essentially resolved. 7. Hypertension. Home medications were initially held given shock on admission. Back on home diltiazem now with acceptable control of blood pressure, so we will likely keep her off her home Lasix. 8. Hyperlipidemia. Continue home statin. 9. Hypokalemia. We will further replete and monitor. DISPOSITION: Likely to rehab once placement can be obtained if she continues to do well. KUN
--- NOTE | 2019-07-20 19:20 | PULMONOLOGY PROGRESS NOTE ---
DATE: 07/20/2019 SUBJECTIVE: The patient is awake, alert, and conversant. She reports her appetite is improving. She denies pain or dyspnea. Keys catheter has been removed. OBJECTIVE: The patient has been afebrile for the last 24 hours. Blood pressure 146/81, heart rate 85, respiratory rate 18, oxygen saturation 95% on 2 L per nasal cannula.HEENT: Pupils are equal and reactive. Oropharynx appears clear. Neck: Supple. Chest: Good air entry bilaterally. Cardiac: S1-S2. Abdomen: Soft without hepatosplenomegaly. Extremities: Without edema. LABORATORY AND DIAGNOSTIC DATA: Chest x-ray reveals continued aeration with improving left lower lobe infiltrate/atelectasis. White blood count 12.3, hemoglobin 10.0, platelet count 253,000. No new culture data. IMPRESSION: An 84-year-old with: 1. Acute hypoxemic respiratory failure. 2. Small effusion versus atelectasis in the left lung base with continued improvement. 3. Hydronephrosis with improvement following stent placement. 4. Septic shock with significant fever, which has resolved. RECOMMENDATIONS: 1. Continue antibiotic regimen. 2. Wean oxygen as tolerated. 3. Continue incentive spirometry. 4. From a pulmonary standpoint, patient can be discharged to the rehab facility or to home tomorrow morning. cc: Lauri Pena MD
[2019-07-20] MEDS: SODIUM CHLORIDE 0.9% INJ SCH (22:05)
[2019-07-21] MEDS: HUMALOG SUBQ SCH ×5 (06:11→23:31)
[2019-07-21 06:42] LABS: BASO# 0.02 X1000 (0.0-0.2); BASO% 0.2 % (0.0-0.8); EOS# 0.13 X1000 (0.0-0.7); EOS% 1.3 % (0.0-10.0); HEMATOCRIT 34.4 % (37.0-47.0); HEMOGLOBIN 11.6 g/dL (12.0-16.0); IMM GRAN# 0.18 X1000 (0.0-0.04); IMM GRAN% 1.8 % (0.0-0.5); LYMPH# 1.12 X1000 (1.2-3.4); MCH 29.1 PG (27-31); MCHC 33.7 g/dL (33-37); MCV 86.4 FL (81-99); MONO# 0.73 X1000 (0.11-0.59); MONO% 7.2 % (1.7-9.3); MPV 9.9 FL (7.4-10.4); NEUT# 7.99 X1000 (1.4-6.5); NEUT% 78.5 % (42.2-75.2); PLT 268 X1000 (130-400); RBC 3.98 XMIL (4.2-5.4); WBC 10.17 X1000 (4.8-10.8)
[2019-07-21 07:19] LABS: AGAP 13; ALB/GLOB RATIO 0.8; ALBUMIN 2.6 g/dL (3.5-5.0); ALKALINE PHOSPHATASE 168 U/L (32-104); BUN 15 mg/dL (8-22); CALCIUM 8.7 mg/dL (8.8-10.2); CHLORIDE 101 mmol/L (98-107); COSMO 282; CREATININE 0.6 mg/dL (0.5-0.9); ESTIMATED GFR > 60; GLUCOSE 136 mg/dL (70-104); GOT 20 U/L (10-30); GPT 25 U/L (10-36); POTASSIUM 3.1 mmol/L (3.5-5.1); SODIUM 140 mmol/L (136-145); TCO2 26 mmol/L (25-35); TOTAL BILIRUBIN 0.65 mg/dL (0.20-1.00)
[2019-07-21] MEDS: CARDIZEM CD PO SCH ×2 (09:26→12:40)
[2019-07-21] MEDS: NAMENDA PO SCH ×2 (09:27→12:40)
[2019-07-21] MEDS: LOPRESSOR PO SCH ×3 (09:27→20:07)
[2019-07-21] MEDS: LIPITOR PO SCH ×2 (09:27→12:40)
[2019-07-21] MEDS: LEVAQUIN PO SCH (09:27)
[2019-07-21] MEDS: CORDARONE PO SCH ×2 (09:28→12:40)
[2019-07-21] MEDS: LANTUS INSULIN SUBQ SCH (09:28)
[2019-07-21] MEDS: DITROPAN PO SCH ×3 (09:28→20:07)
[2019-07-21] MEDS: PEPCID IV SCH ×4 (09:32→23:45)
[2019-07-21] MEDS ORDERED: KLOR-CON PO ONE ×2 (10:09→19:33)
[2019-07-21] MEDS: SODIUM CHLORIDE 0.9% INJ SCH (12:41)
--- NOTE | 2019-07-21 16:43 | PROGRESS NOTE ---
DATE: 07/21/2019 INTERVAL HISTORY: Patient still with waxing and waning confusion. Initially did not want to take her medications this morning but as mental status improved over the day she did eventually take most of it. Confusion appears to be worst primarily at night and early in the morning. No other acute events. No new complaints. Patient quite pleasant and cooperative at the time of my exam. REVIEW OF SYSTEMS: Twelve point review of systems negative except as per interval history. LABORATORY DATA: WBC 10.1, hemoglobin 11.6, hematocrit 34.4, platelets 268,000. Sodium 140, potassium 3.1, BUN 15, creatinine 0.6, glucose 136 to 193. Lactate 1.3. VITALS: T-max 98.2 degrees, pulse 76, respirations 16, blood pressure 135/61, O2 saturation 98% on room air. PHYSICAL EXAMINATION: General: No acute distress, sitting up in a chair eating lunch. Vitals: As above. HEENT: Normocephalic, atraumatic. Moist mucous membranes. No cervical adenopathy. Cardiovascular: Regular rate and rhythm. No murmurs noted. Pulmonary: Clear to auscultation bilaterally. No wheezing, rales, or rhonchi. Abdomen: Soft, nontender, nondistended. Bowel sounds positive. Extremities: Peripheral pulses intact. No clubbing or cyanosis. Neurologic: Cranial nerves grossly intact. Mild global weakness, essentially unchanged. No focal deficits identified. Psychiatric: Normal mood and affect. Awake, alert, cooperative with me and oriented to person and place but not time. Skin: No new rashes or lesions identified. ASSESSMENT AND PLAN: 1. Left pyelonephritis, urinary tract infection, hydronephrosis, septic shock. Patient's shock has remained resolved. Status post a stent in the left ureter. Remains on antibiotics with Levaquin. Leukocytosis resolved. No further fevers. Appears much improved. 2. Possible pneumonia. Patient with some suggestion of pneumonia on chest x-ray just after admission. Improved on Levaquin which we will continue for a full course. 3. Metabolic encephalopathy, likely combination of acute infection and, abnormal wake/ sleep schedule, unfamiliar environment in the setting of underlying dementia. Family does describe what sounds like occasional sundowning at home. Given occasionally significant agitation at night, we will go and start her on some low-dose Seroquel in the evenings. 4. History of atrial fibrillation. Has been largely normal sinus rhythm here. Monitor. 5. Diabetes mellitus. Reasonable control on current regimen. Monitor. 6. Transaminitis, resolved. 7. Hypertension occasional mild elevations but overall acceptable control on diltiazem. Given acute kidney injury on admission we are holding her Lasix. 8. Hypokalemia, still low. Will further replete and monitor. 9. Hyperlipidemia. Continue home statin. DISPOSITION: Likely to rehab once bed is available tomorrow.
--- NOTE | 2019-07-21 18:25 | PROGRESS NOTE ---
DATE: 07/21/2019 SUBJECTIVE: Ms. Whatley reports she is feeling better. She is planning to go to rehab tomorrow if everything lines up. She denies pain, chills. Per her family who is present at bedside, Ms. Whatley still has some confusion but it has been improving. OBJECTIVE: Vital signs: T 97.1 degrees, P 76, BP 135/61. General: No acute distress. HEENT: Normocephalic, atraumatic. Cardiovascular: Regular rate and rhythm. Abdomen: Nontender, nondistended. PERTINENT LABORATORY: White cell count of 10,000. Creatinine is 0.6. ASSESSMENT AND PLAN: An 84-year-old female who presented with left pyelonephritis, ureteropelvic junction obstruction, who decompensated after cystoscopy with stent placement. She is now doing better. I have discussed with the patient and her family that the ureteral stent is a temporary fix. We discussed that she will work on getting stronger and getting her mentation back and I would see her in 2 weeks in the outpatient setting in my office to discuss definitive repair of ureteropelvic junction obstruction versus serial stent exchanges. PLAN: 1. I will see her in 2 weeks or so to discuss further plan of care. 2. Please call with questions. cc: Rogelio Spence MD
[2019-07-21] MEDS: POTASSIUM CHLORIDE 20 MEQ/SWI 20 MEQ/100 ML IVPB IV SCH ×2 (19:29→19:30)
[2019-07-21] MEDS ORDERED: SEROQUEL PO SCH (21:00)
[2019-07-22] MEDS: HUMALOG SUBQ SCH ×2 (06:21→10:48)
[2019-07-22 07:59] LABS: AGAP 13; ALB/GLOB RATIO 0.8; ALBUMIN 2.6 g/dL (3.5-5.0); ALKALINE PHOSPHATASE 153 U/L (32-104); BUN 16 mg/dL (8-22); CALCIUM 8.6 mg/dL (8.8-10.2); CHLORIDE 105 mmol/L (98-107); COSMO 291; CREATININE 0.7 mg/dL (0.5-0.9); ESTIMATED GFR > 60; GLUCOSE 127 mg/dL (70-104); GOT 16 U/L (10-30); GPT 21 U/L (10-36); POTASSIUM 3.3 mmol/L (3.5-5.1); SODIUM 145 mmol/L (136-145); TCO2 27 mmol/L (25-35); TOTAL BILIRUBIN 0.66 mg/dL (0.20-1.00); TOTAL PROTEIN 5.9 g/dL (6.3-8.3)
[2019-07-22 08:32] VITALS: BP 153/72
[2019-07-22] MEDS ORDERED: PEPCID PO SCH (09:00)
[2019-07-22] MEDS: NAMENDA PO SCH (10:46)
[2019-07-22] MEDS: LOPRESSOR PO SCH (10:46)
[2019-07-22] MEDS: CARDIZEM CD PO SCH (10:46)
[2019-07-22] MEDS: DITROPAN PO SCH (10:47)
[2019-07-22] MEDS: LEVAQUIN PO SCH (10:47)
[2019-07-22] MEDS: LIPITOR PO SCH (10:47)
[2019-07-22] MEDS: CORDARONE PO SCH (10:47)
[2019-07-22] MEDS: LANTUS INSULIN SUBQ SCH (10:48)
--- NOTE | 2019-07-22 11:52 | DISCHARGE SUMMARY ---
ADMISSION DATE: 07/16/2019 DISCHARGE DATE: 07/22/2019 PRIMARY CARE PHYSICIAN: Dr. Tovar. CONSULTATIONS: With Urology, Pulmonology. ADMISSION DIAGNOSES: 1. Recent diagnosis of pyelonephritis and urinary tract infection. 2. Mild acute kidney injury. 3. Nausea, vomiting. 4. Atrial fibrillation. 5. Diabetes. DISCHARGE DIAGNOSES: 1. Left pyelonephritis, hydronephrosis with septic shock with shock now resolved, and urinary tract infection with urine culture showing no growth. 2. Possible pneumonia with suggestion of pneumonia on chest x-ray. 3. Metabolic encephalopathy, likely a combination of acute infection and abnormal wake-sleep schedule. 4. History of atrial fibrillation. 5. Diabetes. 6. Transaminitis, resolved. 7. Hypertension. 8. Hypokalemia. 9. Hyperlipidemia. SUMMARY OF FINDINGS: This is an 84-year-old female who presented to the ED stating that she had been told that she had a bladder and kidney infection as well as blood in her urine by her primary care physician, but that was over a week prior to arriving. States earlier in the week, she started having nausea and some episodes of vomiting, then began having left flank pain. Her workup in the ED showed a renal CT with severe ureteropelvic junction stenosis at the left, right nephrolithiasis and distal left ureter is somewhat obscured by metallic artifact. Her chest x-ray was negative, but she did have a white count of 14. Her CT scan did show a 6 mm stone in the lower pole of the right collecting system, but no obstructions on the right and the possibility of stone in the distal portion of the left ureter could not be excluded. She was placed on IV antibiotics. We consulted Urology who has explained to the family that her ureteral stent that she has had in place is a temporary fix and he would follow up with her once she has completed her rehab stay and would discuss at that time definitive repair of the ureteropelvic junction obstruction versus serial stent exchanges. She did have some acute hypoxemic respiratory failure that led us to consult Pulmonology. She is improved from that standpoint. Continuing her antibiotics and weaning her oxygen and it is now felt that she can safely be discharged to rehab today. DISCHARGE MEDICATIONS: Include amiodarone 100 mg p.o. daily, Levaquin 750 mg p.o. daily, metoprolol 50 mg p.o. b.i.d., quetiapine 25 mg p.o. at bedtime, Tylenol 650 mg p.o. q.6 hours p.r.n., Eliquis 5 mg p.o. b.i.d., aspirin 81 mg p.o. daily, Lipitor 40 mg p.o. daily, diltiazem 240 mg p.o. daily, levothyroxine 75 mcg p.o. daily, memantine 10 mg p.o. daily, metformin 500 mg p.o. daily, nystatin 1000 units p.o. 4 times daily, and Zantac 150 mg p.o. b.i.d. FOLLOWUP: She will follow up with Urology and with her primary care physician once she has completed her stay, and appointments will be made at that time. TIME SPENT: A 35 minute discharge. Dictated by LYNN Ortiz for Ronald Avina MD cc: LYNN Ortiz MD Sergey S. Ananyev, MD agree with above. the following is my own face to face assessment. patient with UTI/pyelonephritis related to UPJ obstruction. improved with antibiotics and stent placement. urine culture was no growth so antibiotics are empiric. has had some pretty consistent sundowning so low dose qhs seroquel was added which does seem to have helped quite a bit. some thrush noted on the day of discharge so nystatin solution was added. MTDD
[2019-07-22] MEDS: MYCOSTATIN SUSP PO SCH ×2 (13:00)
== END 2019-07-22 13:58 | DRG 659 ==
LOC: ED 06:19 → 3N 11:21 → SUATTDRO 11:21 → ICU 07-17 16:42 → 3N 07-19 11:01
PROVIDERS: ATTEND Internal Medicine

== ENCOUNTER 2019-10-08 10:05 | Day surgery (SDC) ==
[~2019-10-08 10:05] MED LIST: DIPRIVAN 1% ONE; ZEMURON ONE
[2019-10-08] MEDS ORDERED: LEVAQUIN 500 MG/D5W 500 MG/100 ML IVPB ONE (10:42)
[2019-10-08] MEDS ORDERED: LR 1,000 ML ONE ×2 (10:42→12:55)
[2019-10-08] MEDS ORDERED: LOPRESSOR PO ONE (11:04)
[2019-10-08] MEDS ORDERED: LOPRESSOR ONE (11:18)
[2019-10-08] MEDS ORDERED: MARCAINE 0.25% PF ONE (12:55)
[2019-10-08] MEDS ORDERED: OFIRMEV 1000 MG/ISOTONIC SOLN 1,000 MG/100 ML BOTTLE ONE (14:57)
[2019-10-08] MEDS ORDERED: ZOFRAN ONE (14:57)
[2019-10-08] MEDS ORDERED: DECADRON ONE (14:57)
[2019-10-08] MEDS ORDERED: ROBINUL ONE (15:39)
[2019-10-08 16:08] LABS: URINE SOURCE CATH
[2019-10-08 16:15] LABS: BILIRUBIN URINE NEGATIVE (NEGATIVE); BLOOD URINE NEGATIVE (NEGATIVE); COLOR YELLOW; GLUCOSE URINE NEGATIVE (NEGATIVE); KETONE URINE 20 mg/dL (NEGATIVE); LEUKOCYTES URINE MODERATE (NEGATIVE); NITRITE URINE NEGATIVE (NEGATIVE); PROTEIN URINE TRACE mg/dL (NEGATIVE); SP GRAVITY URINE 1.015; TURBIDITY URINE CLEAR (CLEAR); UROBILINOGEN URINE NORMAL (NORMAL)
[2019-10-08 16:17] LABS: UR EPITHELIAL CELLS >10 /HPF (<10); URINE BACTERIA NEGATIVE /HPF; URINE RBC <10 /HPF (<10); URINE WBC TNTC /HPF (<10)
[2019-10-08] MEDS ORDERED: NS 1,000 ML ONE (16:18)
[2019-10-08] MEDS ORDERED: MORPHINE IV PRN (17:08)
[2019-10-08] MEDS ORDERED: PHENERGAN IV PRN (17:15)
[2019-10-08] MEDS ORDERED: NORCO-10 PO PRN (17:15)
[2019-10-08] MEDS ORDERED: SODIUM CHLORIDE 0.9% INJ PRN (17:15)
[2019-10-08] MEDS ORDERED: DITROPAN PO PRN (17:15)
[2019-10-08] MEDS ORDERED: TYLENOL PO PRN (17:15)
[2019-10-08] MEDS ORDERED: ZOFRAN IV PRN (17:15)
[2019-10-08] MEDS ORDERED: PHENERGAN PO PRN (17:15)
[2019-10-08] MEDS ORDERED: NORCO-7.5 PO PRN (17:15)
[2019-10-08] MEDS ORDERED: OFIRMEV 1000 MG/ISOTONIC SOLN 1,000 MG/100 ML BOTTLE IV PRN (17:15)
[2019-10-08] MEDS ORDERED: LABETALOL IV PRN (17:15)
[2019-10-08] MEDS ORDERED: BENADRYL LIQUID PO PRN (17:15)
[2019-10-08] MEDS: NS 1,000 ML IV SCH (17:18)
[2019-10-08] MEDS: COLACE PO SCH (21:56)
[2019-10-08] MEDS: NAMENDA PO SCH (21:56)
[2019-10-08] MEDS: NORCO-5 PO PRN (21:56)
[2019-10-08] MEDS: PERIDEX MT SCH (21:56)
[2019-10-08] MEDS: ZANTAC PO SCH (21:56)
[2019-10-09 03:58] LABS: CREATININE BODY FLUID 1.4 mg/dL
[2019-10-09] MEDS: NS 1,000 ML IV SCH (06:04)
[2019-10-09] MEDS: NORCO-5 PO PRN ×2 (06:05→09:11)
[2019-10-09] MEDS ORDERED: SYNTHROID PO SCH (07:00)
[2019-10-09 07:20] VITALS: BP 131/57
[2019-10-09 07:33] LABS: HEMATOCRIT 33.7 % (37.0-47.0); HEMOGLOBIN 10.5 g/dL (12.0-16.0); MCH 28.4 PG (27-31); MCHC 31.2 g/dL (33-37); MCV 91.1 FL (81-99); MPV 8.8 FL (7.4-10.4); RBC 3.7 XMIL (4.2-5.4); WBC 9.91 X1000 (4.8-10.8)
[2019-10-09 07:55] LABS: CALCIUM 8.8 mg/dL (8.8-10.2); POTASSIUM 4.5 mmol/L (3.5-5.1)
[2019-10-09] MEDS ORDERED: CORDARONE PO SCH (09:00)
[2019-10-09] MEDS ORDERED: LOPRESSOR PO SCH (09:00)
[2019-10-09] MEDS ORDERED: CARDIZEM CD PO SCH (09:00)
[2019-10-09] MEDS: NAMENDA PO SCH (09:09)
[2019-10-09] MEDS: COLACE PO SCH (09:11)
[2019-10-09] MEDS: PERIDEX MT SCH (09:11)
[2019-10-09] MEDS: ZANTAC PO SCH (09:11)
[2019-10-09] MEDS ORDERED: LEVAQUIN 500 MG/D5W 500 MG/100 ML IVPB IV SCH (12:00)
--- NOTE | 2019-10-09 14:08 | PROGRESS NOTE ---
DATE: 10/09/2019 SUBJECTIVE: Ms. Whatley reports a good night overnight. Her pain is well controlled. She denies nausea, vomiting. OBJECTIVE: Vital signs: Temperature 98.1 degrees, pulse 80, blood pressure 131/57. Her urine output was recorded in the amount of 2050 mL. Her HECTOR drain put out 50 mL. General: No acute distress. Abdomen: Soft, nontender, and nondistended. Incisions all clean, dry, and intact. PERTINENT LABORATORY DATA: White cell count of 10,000, hematocrit 34. Creatinine is 1.0. Her HECTOR creatinine is 1.4. ASSESSMENT: An 84-year-old female, postoperative day 1 status post robotic-assisted laparoscopic left pyeloplasty and ureteral stent placement who is doing well. She was educated on postoperative care. PLAN: 1. Remove drain. 2. Ambulate and void prior to discharge. 3. Discharge home with prescription for Apollo 5 (#15) and Bactrim DS (#10). 4. I plan on seeing her in 4 weeks in my office for cystoscopy and ureteral stent removal, or sooner there is a problem. cc: Rogelio Spence MD
--- NOTE | 2019-10-14 20:16 | OPERATIVE NOTE ---
PROCEDURE DATE: 10/08/2019 SURGEON: Rogelio Spence MD PREOPERATIVE DIAGNOSES: 1. Chronic urinary tract infections. 2. Left ureteropelvic junction obstruction. 3. Left hydronephrosis. 4. History of urosepsis. POSTOPERATIVE DIAGNOSES: 1. Chronic urinary tract infections. 2. Left ureteropelvic junction obstruction. 3. Left hydronephrosis. 4. History of urosepsis. PROCEDURE: 1. Robotic-assisted laparoscopic left pyeloplasty with reduction of the left renal pelvis. 2. Antegrade placement of a 6-Hungarian, 24 cm ureteral stent. INDICATIONS: An 84-year-old female with history of recurrent UTIs. Most recently, she had an episode of sepsis and during admission for that, was evaluated with imaging with CT scan revealing severe hydronephrosis with findings consistent with left ureteropelvic junction obstruction. She then underwent cystoscopy with left retrograde pyelogram, left ureteral stent placement which confirmed left UPJ obstruction. She was counselled on serial stent exchanges versus nephrostomy tube versus definitive repair with pyeloplasty and wants to proceed with the latter. She was counseled on the fact that we may have to convert to open approach, as well as the chance of UPJ obstruction recurrence. FINDINGS: Her ureteropelvic junction obstruction appeared to be due to crossing lower pole vessel. There was quite a bit of inflammation likely from the previous infection with sepsis and the stent in the past and I ended up having to cauterize the small lower pole artery and the vein. Her pelvis was quite large and we reduced it by excising an elliptical piece approximately 2.5 cm in length. Tension-free watertight anastomosis of the renal pelvis in the proximal ureter at the conclusion of the case. DESCRIPTION OF PROCEDURE: After obtaining informed consent, the patient was brought to the operating room. Preoperative antibiotics and general endotracheal anesthesia were administered. She was placed in modified flank position with the left side up. She was prepped and draped in a sterile fashion. Prior to that, a 16-Hungarian Keys catheter was introduced. We began by making a small stab incision in her left upper quadrant and introduced a Veress needle connected to saline- filled syringe. We confirmed positive drop test, followed by aspiration of fluid in the syringe without any evidence of GI contents or blood. We then insufflated her pneumoperitoneum pressure to 15 mmHg. The trocar sites were marked in standard pyeloplasty fashion. Marcaine was used for local anesthetic. We made an incision with Bovie electrocautery. A 12 mm camera was introduced. Her peritoneal cavity was inspected. She did not appear to have significant adhesions and I was able to place the rest of the trocars under direct vision. She was then placed in a more exaggerated flank position with left side up and the robot was docked. We began by incising the white line of Toldt and mobilizing her descending colon. I had to release the splenic colic flexure as well. This exposed the Gerota's fascia. She had quite pronounced renal pelvis which was fairly easy to see. Due to her favorable body habitus, she did not have much perinephric fat. I was able to identify the ureter fairly quickly by dissecting just medial to the lower pole of the kidney. The gonadal vein was identified as well. The kidney was placed in anterior traction with the fourth arm help and I dissected along the ureter until the ureteropelvic junction was seen. As we encountered the ureteropelvic junction, it was obvious that she had an accessory artery in the vein running to the lower pole of the kidney. I dissected more proximal to it and was able to identify the main renal vein. I then attempted to dissect around the blood vessels, so that we could reposition the ureter and renal pelvis. However, she had quite a bit of inflammation and I was concerned that I would tear the accessory renal artery. So after much time spent dissecting it, we elected to control the artery. I used the bipolar electrocautery to cauterized artery and subsequently the vein. This was followed by application of endovascular ARUN stapler across the lower pole vessels. Again we made sure that we did not affect the main renal vessels. Once those vessels were divided, the ureter and the renal pelvis with what appeared to be ureteropelvic junction there came nicely into the view. Her renal pelvis was fairly redundant and I ended up dissecting peripelvic fat. We then incised the renal pelvis and the urine was evacuated. Given the size of her pelvis, we elected to perform reduction pyeloplasty and I excised approximately 2.5 cm ellipse covering about 6 to 7 mm over the proximal ureter in order to obtain fresh healthy tissue. Her ureter has fairly good mobility and there was no concern for tension for anastomosis. Once that was done, this was removed and sent off to pathology. We then used 3-0 Vicryl suture to reapproximate renal pelvis edges in a running fashion. I then used 4-0 Vicryl sutures in an interrupted fashion to reapproximate the proximal ureter after it was spatulated to the renal pelvis. I placed 4 sutures posteriorly in a separate fashion and then we introduced a Sensor wire into her distal ureter in the bladder followed by introduction of a 6- Hungarian, 24 cm ureteral stent over the wire until the proximal coil was visible and directly placed into the renal pelvis. Once that was done, I performed 4 more interrupted 4-0 Vicryl suture closures. At that point, anastomosis appeared to be water tight and was definitely off tension. We decreased pneumoperitoneal pressure to 3 mmHg. There was no evidence of bleeding. We then undocked the robot. Her 12 mm trocar for our system and camera over fascia were closed with 0 Vicryl suture followed by irrigation of the wound followed by 4-0 Monocryl subcuticular closure followed by Covidien adhesive agent. She was extubated and taken to PACU for further recovery. ESTIMATED BLOOD LOSS: 30 mL. COMPLICATIONS: None. SPECIMENS: Labeled as left ureteropelvic junction and part of renal pelvis. DRAINS: A 16-Hungarian Keys catheter, a Ezequiel drain and a 6-Hungarian, 24 cm ureteral stent. DISPOSITION: To PACU and subsequently to floor for observation overnight. ADDENDUM: Prior to undocking the robot, we introduced a Ezequiel drain via the fourth arm and under direct vision. We placed it around the area of the renal hilum. The Ezequiel drain was secured to skin with 2-0 nylon suture. cc: Rogelio Spence MD
== END 2019-10-09 12:00 | disposition home or self-care (01) ==
LOC: 4N 10:05 → OR 10:05
PROVIDERS: ATTEND Urology